=== PATIENT | female | born 1965 | race Caucasian/White ===

== ENCOUNTER 2017-01-13 21:46 | Emergency (ER) | payer SELFPAY ==
[~2017-01-13] VITALS: Ht 157.5 cm; Wt 72.0 kg
[~2017-01-13 21:46] MED LIST: HYDR-3533 PO; SYNT88TA PO
[2017-01-13 21:48] VITALS: BP 167/85; PULSE 93; RESP 20; TEMP 97.9; O2SAT 99
[2017-01-13] MEDS ORDERED: DICL50TA3 PO (23:09)
--- NOTE | 2017-01-13 23:09 | PD ---
HPI Chief Complaint: Injury Time Seen by Provider: 23:06 Travel History International Travel<30 days: No Contact w/Intl Traveler<30days: No Traveled to known affect area: No History of Present Illness HPI 51-year-old white female presents to the emergency department with complaints of right ankle pain. She states that she was standing in the kitchen and rolled her ankle. She states that she had heard and felt a pop. Since then she 's not been able to bear weight. She denies any numbness, tingling. No weakness. She did not go to the ground. She was able to catch herself. PFSH Past Medical History Heart Rhythm Problems: No Cardiac Catheterization: No Cardiovascular Problems: No High Cholesterol: No Chest Pain: Yes (HX STRESS TEST) Congestive Heart Failure: No Diabetes: No Diminished Hearing: No Hypertension: Yes Immunizations Current: Yes Myocardial Infarction: No Pancreatitis: Yes Tetanus Vaccination: < 5 Years ?: Not Past Surgical History Section: Yes (X2) Coronary Artery Bypass Graft: No Eye Surgery: Yes (CATARACTS) Hysterectomy: Yes (PARTIAL 1996) Tonsillectomy: Yes Other Surgery: Yes (BREAST AUGMENTATION 2005) Social History Alcohol Use: Yes (RARELY) Tobacco Use: Yes (1/2PPD) Substance Use: No Allergies-Medications (Allergen,Severity, Reaction): Coded Allergies: Penicillin (Verified Allergy, Severe, SWELLING,HIVES, 01/13/17) Tylenol/Codeine (Verified Allergy, Severe, SWELLING,HIVES, 01/13/17) Darvocet-N 100 (Verified Adverse Reaction, Severe, CHEST PAIN,ABDOMINAL PAIN, 01/13/17) Erythromycin (Verified Adverse Reaction, Intermediate, Nausea/Vomiting, 01/13/17) Reported Meds & Prescriptions Reported Meds & Active Scripts Active Diclofenac Sodium DR (Diclofenac Sodium) 50 Mg Tabdr 50 Mg PO TID Lortab 5 mg/325 mg (Hydrocodone/Acetaminophen 5 mg/325 mg) 1 Tab 1 Tab PO Q6H PRN Reported Synthroid 88 mcg (Levothyroxine Sodium) 88 Mcg Tab 88 Mcg PO DAILY Review of Systems Except as stated in HPI: all other systems reviewed are Neg Physical Exam Narrative GENERAL: Well-developed, well-nourished in no apparent distress. Nontoxic appearing. HEAD: Normocephalic, atraumatic. EYES: Pupils equal round and reactive. Extraocular motions intact. No scleral icterus. No injection or drainage. ENT: Nose clear. Throat without erythema, tonsillar hypertrophy or exudate. Uvula midline. Airway patent. NECK: Trachea midline. Supple, nontender, moves head freely. No central bony tenderness or spasm. CARDIOVASCULAR: Regular rate and rhythm without murmurs, gallops, or rubs. RESPIRATORY: Clear to auscultation. Breath sounds equal bilaterally. No wheezes , rales, or rhonchi. GASTROINTESTINAL: Abdomen soft, non-tender, nondistended. No hepato-splenomegaly , or palpable masses. No guarding. EXTREMITIES: No clubbing, cyanosis. Examination of the right lower extremity reveals pain over the lateral malleolus as well as the anterior talar fibular ligament region. No pain over the medial malleolus. No pain in the heel, Achilles, distal forefoot or toes. She has intact sensation with good distal pulses. No pain in the knee or hip. The left lower extremity as well as upper extremities are unremarkable for acute bony tenderness or deformity. Patient is neurovascularly intact. BACK: Nontender without deformity. No flank tenderness. NEUROLOGICAL: Awake, alert and oriented x 3 .Cranial nerves grossly intact. Motor and sensory grossly within normal limits. Normal speech. Data Data Last Documented VS Vital Signs Date Time Temp Pulse Resp B/P Pulse Ox O2 Delivery O2 Flow Rate FiO2 01/13/17 21:48 97.9 93 20 167/85 99 Room Air Orders Ankle, Complete ([id number]) (01/13/17 23:04) Ice/Cold Pack (01/13/17 23:04) Splint Or Brace Apply/Monitor (01/13/17 23:04) Crutches (01/13/17 23:04) Acetamin-Hydrocod 325-5 Mg ([place] 5-325 (01/13/17 23:15) Ibuprofen (Motrin) (01/13/17 23:15) MDM Medical Decision Making Medical Screen Exam Complete: Yes Emergency Medical Condition: Yes Medical Record Reviewed: Yes Interpretation(s) Right ankle: Positive soft tissue swelling but no acute fracture. Differential Diagnosis MDM: High Differential diagnoses: Fracture, sprain, strain, dislocation, contusion, neurovascular injury Narrative Course X-ray of the right ankle is negative for acute bony injury. Patient's given Lortab 5 and Motrin 600 mg by mouth. Ice pack applied. Devang wrap and crutches. This is right ankle sprain Diagnosis Primary Impression: Right ankle sprain Qualified Code: S93.421A - Sprain of deltoid ligament of right ankle, initial encounter Patient Instructions: General Instructions, Narcotic given in the ED Departure Forms: Tests/Procedures, Work Release Special Instructions: No work 3 days. Additional Instructions: Rest. Elevation. Ice packs for the next 3 days. Devang wrap and crutches. No weight-bearing and then progress to weight-bearing as tolerated. Medications as directed Follow-up with an orthopedist or your doctor in one week. Return to the ER if any problems Med/Other Pt SpecificInfo: Prescription(s) given Scripts Diclofenac Sodium DR 50 Mg Tabdr50 Mg PO TID #30 TAB Prov:Manuel Douglas MD 01/13/17 Disposition: 01 DISCHARGE HOME Condition: Stable Sergio Mathis Jan 13, 2017 23:09
[2017-01-13] MEDS ORDERED: IBUPROFEN 600 MG TAB PO ONE (23:15)
[2017-01-13] MEDS ORDERED: ACETAMINOPHEN/HYDROcodone 325 MG/5 MG TAB PO ONE (23:15)
--- NOTE | 2017-01-13 23:29 | RADRPT ---
EXAM DATE/TIME: 01/13/2017 23:17 [facility] COMPARISON: No previous studies available for comparison. INDICATIONS : Right ankle pain post fall today. MEDICAL HISTORY : None. SURGICAL HISTORY : None. ENCOUNTER: Initial ACUITY: 1 day PAIN SCORE: 10/10 LOCATION: Right lateral ankle. FINDINGS: Three view exam was performed of the right ankle. The bony structures are in normal alignment. No e vidence of fracture, dislocation, or soft tissue swelling. The ankle mortise is intact. No radiopaq ue foreign bodies are seen. Bony mineralization is normal. Small calcaneal spur at the plantar apone urosis CONCLUSION: Small calcaneal spur. No fracture. Shaun Bone MD on January 13, 2017 at 23:26 Board Certified Radiologist. This report was verified electronically.
[2017-03-11] MEDS ORDERED: ADVI200C PO (14:41)
[2017-03-11] MEDS ORDERED: LEVO75TA3 PO (15:00)
== END 2017-01-13 23:40 | disposition home or self-care (01) ==
LOC: NEPB 21:46
DX: S93.421A Sprain of deltoid ligament of right ankle, initial encounter (principal); F17.200 Nicotine dependence, unspecified, uncomplicated; Z87.19 Personal history of other diseases of the digestive system; X58.XXXA Exposure to other specified factors, initial encounter; Y92.000 Kitchen of unspecified non-institutional (private) residence as the place of occurrence of the external cause
CPT/HCPCS: 73610; 99283; E0113

== ENCOUNTER 2017-02-27 07:46 | Observation (INO) | payer SELFPAY ==
[2017-02-27] VITALS (9 sets, daily range): BP systolic 133–187; BP diastolic 79–104; PULSE 67–89; RESP 16–20; TEMP 96.2–98.1; O2SAT 95–100
[~2017-02-27 07:46] MED LIST changes: +DICL50TA3 PO
--- NOTE | 2017-02-27 08:03 | PD ---
HPI Chief Complaint: Numbness/Tingling Time Seen by Provider: 07:57 Travel History International Travel<30 days: No Contact w/Intl Traveler<30days: No Traveled to known affect area: No History of Present Illness HPI 51yo F with PMH of HTN not on any medications, TIA presents to the ED with c/o numbness in the right face, arm and leg since waking up this morning. States she went to bed normal last night but does not remember time she went to bed but woke up at 6am and felt more numb in the right side. Pt also has a chronic headache that is her usual headache. Denies any fever, neck pain, visual changes, chest pain, sob, n/v, abdominal pain, or focal weakness. [facility] states she was a bit shaky in her arm so they gave ativan 2mg IV. Pt denies any chronic alcohol use but does have some right arm tremors with movement. PFSH Past Medical History Heart Rhythm Problems: No Cardiac Catheterization: No Cardiovascular Problems: No High Cholesterol: No Chest Pain: Yes (HX STRESS TEST) Congestive Heart Failure: No Diabetes: No Diminished Hearing: No Hypertension: Yes Immunizations Current: Yes Myocardial Infarction: No Pancreatitis: Yes ?: Unknown Past Surgical History Section: Yes (X2) Coronary Artery Bypass Graft: No Eye Surgery: Yes (CATARACTS) Hysterectomy: Yes (PARTIAL 1996) Tonsillectomy: Yes Other Surgery: Yes (BREAST AUGMENTATION 2005) Social History Alcohol Use: Yes (RARELY) Tobacco Use: Yes (1/2PPD) Substance Use: No Allergies-Medications (Allergen,Severity, Reaction): Coded Allergies: Penicillin (Verified Allergy, Severe, SWELLING,HIVES, 01/13/17) Tylenol/Codeine (Verified Allergy, Severe, SWELLING,HIVES, 01/13/17) Darvocet-N 100 (Verified Adverse Reaction, Severe, CHEST PAIN,ABDOMINAL PAIN, 01/13/17) Erythromycin (Verified Adverse Reaction, Intermediate, Nausea/Vomiting, 01/13/17) Reported Meds & Prescriptions Reported Meds & Active Scripts Active Diclofenac Sodium DR (Diclofenac Sodium) 50 Mg Tabdr 50 Mg PO TID Review of Systems Except as stated in HPI: all other systems reviewed are Neg Physical Exam Narrative GENERAL: 51yo F not in distress. SKIN: Focused skin assessment warm/dry. HEAD: Atraumatic. Normocephalic. EYES: Pupils equal and round. No scleral icterus. No injection or drainage. ENT: No nasal bleeding or discharge. Mucous membranes pink and moist. NECK: Trachea midline. No JVD. CARDIOVASCULAR: Regular rate and rhythm. No murmur appreciated. RESPIRATORY: No accessory muscle use. Clear to auscultation. Breath sounds equal bilaterally. GASTROINTESTINAL: Abdomen soft, non-tender, nondistended. MUSCULOSKELETAL: No obvious deformities. No clubbing. No cyanosis. No edema. NEUROLOGICAL: Awake and alert. NIH stroke scale of 1. Pt has decreased sensation in right face V1-V3 distribution, right arm and right leg. PSYCHIATRIC: Appropriate mood and affect; insight and judgment normal. Data Data Last Documented VS Vital Signs Date Time Temp Pulse Resp B/P Pulse Ox O2 Delivery O2 Flow Rate FiO2 02/27/17 08:57 79 18 143/79 98 02/27/17 08:[address] Brain W/O Iv Contrast(Rout) (02/27/17 ) Complete Blood Count With Diff (02/27/17 07:57) Basic Metabolic Panel (Bmp) (02/27/17 07:57) Prothrombin Time / Inr (Pt) (02/27/17 07:57) Act Partial Throm Time (Ptt) (02/27/17 07:57) Hydralazine Inj (Apresoline Inj) (02/27/17 08:15) Aspirin (Aspirin) (02/27/17 10:00) Admit Order (Ed Use Only) (02/27/17 09:59) Consult Neurology (02/27/17 ) Labs Laboratory Tests Test 02/27/17 08:00 White Blood Count 6.1 TH/MM3 Red Blood Count 4.09 MIL/MM3 Hemoglobin 13.8 GM/DL Hematocrit 39.4 % Mean Corpuscular Volume 96.3 FL Mean Corpuscular Hemoglobin 33.7 PG Mean Corpuscular Hemoglobin 35.0 % Concent Red Cell Distribution Width 13.5 % Platelet Count 321 TH/MM3 Mean Platelet Volume 8.5 FL Neutrophils (%) (Auto) 52.2 % Lymphocytes (%) (Auto) 32.8 % Monocytes (%) (Auto) 10.2 % Eosinophils (%) (Auto) 3.4 % Basophils (%) (Auto) 1.4 % Neutrophils # (Auto) 3.2 TH/MM3 Lymphocytes # (Auto) 2.0 TH/MM3 Monocytes # (Auto) 0.6 TH/MM3 Eosinophils # (Auto) 0.2 TH/MM3 Basophils # (Auto) 0.1 TH/MM3 CBC Comment DIFF FINAL Differential Comment Prothrombin Time 10.5 SEC Prothromb Time International 1.0 RATIO Ratio Activated Partial 25.9 SEC Thromboplast Time Sodium Level 141 MEQ/L Potassium Level 3.9 MEQ/L Chloride Level 105 MEQ/L Carbon Dioxide Level 27.1 MEQ/L Anion Gap 9 MEQ/L Blood Urea Nitrogen 11 MG/DL Creatinine 0.85 MG/DL Estimat Glomerular Filtration 70 ML/MIN Rate Random Glucose 90 MG/DL Hemoglobin A1c 5.3 % Calcium Level 9.4 MG/DL Total Creatine Kinase 105 U/L Troponin I LESS THAN 0.02 NG/ML Free Thyroxine 0.69 NG/DL Free Triiodothyronine (T3) 2.77 PG/ML pg/dL Thyroid Stimulating Hormone 22.800 uIU/ML 3rd Gen [facility] Medical Decision Making Medical Screen Exam Complete: Yes Emergency Medical Condition: Yes Differential Diagnosis CVA vs. anxiety vs. electrolyte abnormality vs. hypertensive emergency Narrative Course 51yo F with HTN and TIA here with new onset right sided numbness when she woke up this morning. Pt's blood pressure is elevated at 172/104. Will give hydralazine 10mg IV. Will obtain stat CT brain and labs. CT brain negative. Labs reviewed, no leukocytosis. BMP unremarkable. Aspirin given. Neurology consult placed. Pt to be admitted for TIA work up. Diagnosis Primary Impression: TIA (transient ischemic attack) Qualified Code: G45.9 - Transient cerebral ischemia, unspecified type Admitting Information Admitting Physician Requests: Zenobia Robins DO Feb 27, 2017 08:03
[2017-02-27 08:13] LABS: AUTOMATED NEUTROPHIL # 3.2 TH/MM3 (1.8-7.7); BASOPHIL # 0.1 TH/MM3 (0-0.2); BASOPHIL % 1.4 % (0.0-2.0); EOSINOPHIL # 0.2 TH/MM3 (0-0.4); EOSINOPHIL % 3.4 % (0.0-4.0); HEMATOCRIT 39.4 % (35.0-46.0); HEMO FLAGS DIFF FINAL; LYMPH % 32.8 % (9.0-44.0); MEAN CELL VOLUME 96.3 FL (80.0-100.0); MEAN CORPUSCULAR HEMOGLOBIN 33.7 PG (27.0-34.0); MONO % 10.2 % (0.0-8.0); NEUT % 52.2 % (16.0-70.0); PLATELET COUNT 321 TH/MM3 (150-450); RED BLOOD COUNT 4.09 MIL/MM3 (4.00-5.30); RED CELL DISTRIBUTION WIDTH 13.5 % (11.6-17.2); WHITE BLOOD COUNT 6.1 TH/MM3 (4.0-11.0)
[2017-02-27] MEDS ORDERED: hydrALAZINE HCL 20 MG/ML VIAL IV PUSH ONE (08:15)
[2017-02-27 08:18] LABS: APTT (PATIENT) 25.9 SEC (24.3-30.1); PROTHROMBIN TIME - PATIENT 10.5 SEC (9.8-11.6)
[2017-02-27 08:42] LABS: BICARBONATE 27.1 MEQ/L (21.0-32.0); POTASSIUM 3.9 MEQ/L (3.5-5.1)
--- NOTE | 2017-02-27 09:11 | RADRPT ---
EXAM DATE/TIME: 02/27/2017 08:46 [facility] COMPARISON: No previous studies available for comparison. INDICATIONS : Uncontrolled shaking, right-sided numbness since waking up today. RADIATION DOSE: 37.93 CTDIvol (mGy) MEDICAL HISTORY : Hypertension. SURGICAL HISTORY : Tonsillectomy. ENCOUNTER: Initial ACUITY: 1 day PAIN SCALE: 5/10 LOCATION: Bilateral occipital TECHNIQUE: Multiple contiguous axial images were obtained of the head. Using automated exposure control and adj ustment of the mA and/or kV according to patient size, radiation dose was kept as low as reasonably a chievable to obtain optimal diagnostic quality images. FINDINGS: CEREBRUM: The ventricles are normal for age. No evidence of midline shift, mass lesion, hemorrhage or acute in farction. No extra-axial fluid collections are seen. POSTERIOR FOSSA: The cerebellum and brainstem are intact. The 4th ventricle is midline. The cerebellopontine angle i s unremarkable. EXTRACRANIAL: The visualized portion of the orbits is intact. SKULL: The calvaria is intact. No evidence of skull fracture. CONCLUSION: No acute disease. Tristin Dunn MD on February 27, 2017 at 9:09 Board Certified Radiologist. This report was verified electronically.
[2017-02-27] MEDS ORDERED: ASPIRIN 325 MG TAB PO ONE (10:00)
--- NOTE | 2017-02-27 10:36 | HHI.HP ---
HPI Service Family Medicine Primary Care Physician No Primary Care Physician Admission Diagnosis CVA Diagnoses: International Travel<30 Days: No Contact w/Intl Traveler<30days: No Known Affected Area: No History of Present Illness 51 yo F presenting with right sided paresthesias of the face/arm and generalized malaise. She states she was feeling well until yesterday when she began to feel "shaky" and tremulous with diaphoresis. She went to sleep at approx. 6pm yesterday and continued to be shaky/tremulous throughout the night. She woke up this morning with uncontrollable tremulousness and diaphoresis. This was associated with right sided numbness of the right side of her face, right hand, and right leg down to her foot. This was first noticed at 3am upon waking up. She was unable to stop shaking and her recommend she present to the hospital. At that time, she describes subjective right sided upper and lower extremity weakness but was able to walk without issue. She also began having chest pain located under her right breast that started this morning while in the ED. This chest pain is described as a sharp pain that is stabbing in nature, located only on the right side and is associated with some shortness of breath. She endorses a significant headache described as pressure in the posterior of head (chronic headaches, not endorsed as the worst headache shes ever had), fuzzy vision (chronic without changes), tremors/shaking, diaphoresis and malaise , chest pain located on the right side with shortness of breath. She denies nausea/vomiting, abdominal pain, joint pain, dysuria, palpitations. [facility] was called to her house and states she was a bit shaky in her arm so they gave ativan 2mg IV. Pt denies any chronic alcohol use but does have some right arm tremors with movement. Several years ago she was hospitalized for chest pain and shortness of breath and was told she had a "clot pass through her heart" and was hayden to be alive. However she was never treated for pulmonary embolus or on blood thinners. She is unable to further describe this event. Review of Systems Constitutional: COMPLAINS OF: Diaphoretic episodes, Fatigue, Fever, Chills, DENIES: Weight gain, Weight loss, Dizziness Eyes: COMPLAINS OF: Blurred vision, DENIES: Eye pain, Vision loss, Double Vision Ears, nose, mouth, throat: DENIES: Nasal discharge Respiratory: COMPLAINS OF: Cough, Shortness of breath, DENIES: Wheezing, Sputum production Cardiovascular: COMPLAINS OF: Chest pain, DENIES: Palpitations, Syncope, Dyspnea on Exertion, Lower Extremity Edema Gastrointestinal: COMPLAINS OF: Difficulty Swallowing, DENIES: Abdominal pain , Constipation, Diarrhea, Nausea, Vomiting Musculoskeletal: COMPLAINS OF: Neck pain, DENIES: Joint pain, Muscle aches, Back pain Psychiatric: COMPLAINS OF: Anxiety, DENIES: Confusion, Agitation Past Family Social History Past Medical History Hypothyroid (not on medication) Hypertension (not on medication) Pancreatitis (2006) Cataracts s/p removal with lens placement Past Surgical History Cataract removal Hysterectomy Tonsillectomy Ganglion cyst removal Breast Augmentation Caesarian Section x2 Right knee surgery Reported Medications Reported Meds & Active Scripts Active Diclofenac Sodium DR (Diclofenac Sodium) 50 Mg Tabdr 50 Mg PO TID Lortab 5 mg/325 mg (Hydrocodone/Acetaminophen 5 mg/325 mg) 1 Tab 1 Tab PO Q6H PRN Reported Synthroid 88 mcg (Levothyroxine Sodium) 88 Mcg Tab 88 Mcg PO DAILY Allergies: Coded Allergies: Penicillin (Verified Allergy, Severe, SWELLING,HIVES, 01/13/17) Tylenol/Codeine (Verified Allergy, Severe, SWELLING,HIVES, 01/13/17) Darvocet-N 100 (Verified Adverse Reaction, Severe, CHEST PAIN,ABDOMINAL PAIN, 01/13/17) Erythromycin (Verified Adverse Reaction, Intermediate, Nausea/Vomiting, 01/13/17) Active Ordered Medications Active Medications Aspirin (Aspirin) 325 mg ONCE ONCE PO Last administered on 02/27/17 09:59; Admin Dose 325 MG; Start 02/27/17 at 10:00; Stop 02/27/17 at 10:01; Status DC Hydralazine HCl (Apresoline Inj) 10 mg ONCE ONCE IV PUSH Last administered on 08:11; Admin Dose 10 MG; Start 02/27/17 at 08:15; Stop 02/27/17 at 08: 16; Status DC Family History Father: from mesothelioma age 65 Mother: Age 72 - breast cancer and small cell carcinoma and currently in facility for brain clots Sister: abnormal cervical cells Daughter: cervical cancer Social History 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 HEAD: Atraumatic. Normocephalic. EYES: Pupils equal and round. No scleral icterus. No injection or drainage. ENT: total upper plate in mouth, no pharyngeal erythema NECK: Trachea midline. No JVD. CARDIOVASCULAR: Regular rate and rhythm. No murmur appreciated. RESPIRATORY: No accessory muscle use. Clear to auscultation. Breath sounds equal bilaterally. GASTROINTESTINAL: Abdomen soft, non-tender, nondistended. (+) BS MUSCULOSKELETAL: No obvious deformities. No clubbing. No cyanosis. No edema. NEUROLOGICAL: Awake and alert. Pt has subjectively decreased sensation in right face V1-V3 distribution, right arm and right leg. Negative pronator drift , normal cerebellar function testing with heel-christian, hand movement. 5/5 strength with upper/lower ext. strength testing. Facies is symmetric without obvious droop/lag. PSYCHIATRIC: Appropriate mood and affect; insight and judgment normal. Somewhat anxious and emotional. Laboratory Laboratory Tests Test 02/27/17 08:00 White Blood Count 6.1 Red Blood Count 4.09 Hemoglobin 13.8 Hematocrit 39.4 Mean Corpuscular Volume 96.3 Mean Corpuscular Hemoglobin 33.7 Mean Corpuscular Hemoglobin 35.0 Concent Red Cell Distribution Width 13.5 Platelet Count 321 Mean Platelet Volume 8.5 Neutrophils (%) (Auto) 52.2 Lymphocytes (%) (Auto) 32.8 Monocytes (%) (Auto) 10.2 Eosinophils (%) (Auto) 3.4 Basophils (%) (Auto) 1.4 Neutrophils # (Auto) 3.2 Lymphocytes # (Auto) 2.0 Monocytes # (Auto) 0.6 Eosinophils # (Auto) 0.2 Basophils # (Auto) 0.1 CBC Comment DIFF FINAL Differential Comment Prothrombin Time 10.5 Prothromb Time International 1.0 Ratio Activated Partial 25.9 Thromboplast Time Sodium Level 141 Potassium Level 3.9 Chloride Level 105 Carbon Dioxide Level 27.1 Anion Gap 9 Blood Urea Nitrogen 11 Creatinine 0.85 Estimat Glomerular Filtration 70 Rate Random Glucose 90 Calcium Level 9.4 Result Diagram: 02/27/17 0800 02/27/17 0800 Imaging Last [address] 02/27/17 0000 Signed Impressions: Service Date/Time: February 08:46 - CONCLUSION: No acute disease. Tristin Dunn MD Assessment and Plan Assessment and Plan 51 yo F presenting with right sided facial/upper extremity paresthesias consistent with TIA vs. CVA Problem List: (1) Abnormal neurological findings Status: Acute Plan: Neurologic findings including right sided facial paresthesia, right upper extremity and right lower extremity paresthesias with subjective weakness -Symptoms consistent with TIA versus CVA - Presenting outside of the window for thrombolytic therapy and symptoms are gradually improving Neurology was consulted in the emergency department, recommendations appreciated CVA evaluation as below: CT brain with no acute findings MRI brain ordered and pending Carotid ultrasound ordered and pending 2-D echocardiogram ordered and pending Medication management as below: Aspirin 325 mg by mouth daily Pravastatin 40 mg by mouth daily - Obtain fasting lipid panel Supportive management: Supplemental oxygen as needed Monitor on telemetry to evaluate for arrhythmia such as atrial fibrillation Physical therapy/occupational therapy consult placed Head of bed <30 degrees 12 hours Neurochecks every 4 hours Permissive hypertension up to 220 systolic, as needed antihypertensives with hydralazine (2) Chest pain Status: Acute Plan: Atypical chest pain, right sided and worse with inspiration ACS rule out with: Troponin 1 EKG 1 (3) Headache Status: Acute Plan: Described as worst headache of her life, further evaluation with MRI pending - Anxiety could play a role in this, headaches are chronic in nature As needed anxiety medication with Ativan 1 mg every 6 hours (4) Hypothyroid Status: Acute Plan: Currently not taking thyroid medication - Obtain TSH and T3/T4 (5) Hypertension Status: Chronic Plan: Permissive hypertension at this time up to 220 systolic - As needed hydralazine Blood pressure remains elevated we will begin antihypertensive treatment (6) FEN / Prophylaxis Status: Acute Plan: Fluids: Appears well-hydrated, bedside swallow eval and then oral hydration Electrolytes: Monitor and replace as needed Nutrition: Bedside swallow eval and then allow diet ad natalya. Prophylaxis: Lovenox 40 mg SQ daily Physician Certification 2 Midnight Certification Type: Admission for Inpatient Services Order for Inpatient Services The services are ordered in accordance with Medicare regulations or non- Medicare payer requirements, as applicable. In the case of services not specified as inpatient-only, they are appropriately provided as inpatient services in accordance with the 2-midnight benchmark. Estimated LOS (days): 2 2 days is the estimated time the patient will need to remain in the hospital, assuming treatment plan goals are met and no additional complications. Post-Hospital Plan: Not yet determined Problem Qualifiers (1) Chest pain: Qualified Code: R07.9 - Chest pain, unspecified type (2) Hypertension: Qualified Code: I10 - Essential hypertension Devan Barker MD Feb 27, 2017 10:35
[2017-02-27] MEDS ORDERED: SODIUM CHLORIDE 0.9% FLUSH 10 ML FLUSH IV FLUSH PRN (11:30)
[2017-02-27] MEDS ORDERED: GLUCAGON 1 MG/ML VIAL IM/SQ PRN (11:30)
[2017-02-27] MEDS ORDERED: ENALAPRILAT 1.25 MG/ML VIAL IV PRN (11:30)
[2017-02-27] MEDS: SODIUM CHLORIDE 0.9% FLUSH 10 ML FLUSH IV FLUSH SCH ×2 (11:30→21:00)
[2017-02-27] MEDS ORDERED: LORazepam 1 MG TAB PO PRN (11:30)
[2017-02-27] MEDS ORDERED: DEXTROSE 50% IN WATER 50 ML VIAL(D50) IV PUSH PRN (11:30)
--- NOTE | 2017-02-27 11:45 | HHI.HP ---
HPI Service Family Medicine Primary Care Physician No Primary Care Physician Admission Diagnosis CVA Diagnoses: (1) Abnormal neurological findings (2) Chest pain (3) Headache (4) Hypothyroid (5) Hypertension (6) FEN / Prophylaxis International Travel<30 Days: No Contact w/Intl Traveler<30days: No Known Affected Area: No History of Present Illness 51 yo F presenting with right sided paresthesias of the face/arm and generalized malaise. She states she was feeling well until yesterday when she began to feel "shaky" and tremulous with diaphoresis. She went to sleep at approx. 6pm yesterday and continued to be shaky/tremulous throughout the night. She woke up this morning with uncontrollable tremulousness and diaphoresis. This was associated with right sided numbness of the right side of her face, right hand, and right leg down to her foot. This was first noticed at 3am upon waking up. She was unable to stop shaking and her recommend she present to the hospital. At that time, she describes subjective right sided upper and lower extremity weakness but was able to walk without issue. She also began having chest pain located under her right breast that started this morning while in the ED. This chest pain is described as a sharp pain that is stabbing in nature, located only on the right side and is associated with some shortness of breath. She endorses a significant headache described as pressure in the posterior of head (chronic headaches, not endorsed as the worst headache shes ever had), fuzzy vision (chronic without changes), tremors/shaking, diaphoresis and malaise , chest pain located on the right side with shortness of breath. She denies nausea/vomiting, abdominal pain, joint pain, dysuria, palpitations. [facility] was called to her house and states she was a bit shaky in her arm so they gave ativan 2mg IV. Pt denies any chronic alcohol use but does have some right arm tremors with movement. Several years ago she was hospitalized for chest pain and shortness of breath and was told she had a "clot pass through her heart" and was hayden to be alive. However she was never treated for pulmonary embolus or on blood thinners. She is unable to further describe this event. Past Family Social History Past Medical History Hypothyroid (not on medication) Hypertension (not on medication) Pancreatitis (2006) Cataracts s/p removal with lens placement Past Surgical History Cataract removal Hysterectomy Tonsillectomy Ganglion cyst removal Breast Augmentation Caesarian Section x2 Right knee surgery Allergies: Coded Allergies: Penicillin (Verified Allergy, Severe, SWELLING,HIVES, 01/13/17) Tylenol/Codeine (Verified Allergy, Severe, SWELLING,HIVES, 01/13/17) Darvocet-N 100 (Verified Adverse Reaction, Severe, CHEST PAIN,ABDOMINAL PAIN, 01/13/17) Erythromycin (Verified Adverse Reaction, Intermediate, Nausea/Vomiting, 01/13/17) Family History Father: from mesothelioma age 65 Mother: Age 72 - breast cancer and small cell carcinoma and currently in facility for brain clots Sister: abnormal cervical cells Daughter: cervical cancer Social History 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 SKIN: No rashes, ecchymoses or lesions. Cool and dry. HEAD: Atraumatic. Normocephalic. No temporal or scalp tenderness. EYES: Pupils equal round and reactive. Extraocular motions intact. No scleral icterus. No injection or drainage. ENT: Nose without bleeding, purulent drainage or septal hematoma. Throat without erythema, tonsillar hypertrophy or exudate. Uvula midline. Airway patent. NECK: Trachea midline. No JVD or lymphadenopathy. Supple, nontender, no meningeal signs. CARDIOVASCULAR: Regular rate and rhythm without murmurs, gallops, or rubs. RESPIRATORY: Clear to auscultation. Breath sounds equal bilaterally. No wheezes , rales, or rhonchi. GASTROINTESTINAL: Abdomen soft, non-tender, nondistended. No hepato-splenomegaly , or palpable masses. No guarding. MUSCULOSKELETAL: Extremities without clubbing, cyanosis, or edema. No joint tenderness, effusion, or edema noted. No calf tenderness. Negative Homans sign bilaterally. NEUROLOGICAL: Awake and alert. Cranial nerves II through XII intact. Motor and sensory grossly within normal limits. Five out of 5 muscle strength in all muscle groups. Normal speech. Laboratory Laboratory Tests Test 02/27/17 08:00 White Blood Count 6.1 Red Blood Count 4.09 Hemoglobin 13.8 Hematocrit 39.4 Mean Corpuscular Volume 96.3 Mean Corpuscular Hemoglobin 33.7 Mean Corpuscular Hemoglobin 35.0 Concent Red Cell Distribution Width 13.5 Platelet Count 321 Mean Platelet Volume 8.5 Neutrophils (%) (Auto) 52.2 Lymphocytes (%) (Auto) 32.8 Monocytes (%) (Auto) 10.2 Eosinophils (%) (Auto) 3.4 Basophils (%) (Auto) 1.4 Neutrophils # (Auto) 3.2 Lymphocytes # (Auto) 2.0 Monocytes # (Auto) 0.6 Eosinophils # (Auto) 0.2 Basophils # (Auto) 0.1 CBC Comment DIFF FINAL Differential Comment Prothrombin Time 10.5 Prothromb Time International 1.0 Ratio Activated Partial 25.9 Thromboplast Time Sodium Level 141 Potassium Level 3.9 Chloride Level 105 Carbon Dioxide Level 27.1 Anion Gap 9 Blood Urea Nitrogen 11 Creatinine 0.85 Estimat Glomerular Filtration 70 Rate Random Glucose 90 Calcium Level 9.4 Result Diagram: 02/27/17 0800 02/27/17 0800 Imaging Last [address] 02/27/17 0000 Signed Impressions: Service Date/Time: February 08:46 - CONCLUSION: No acute disease. Tristin Dunn MD Assessment and Plan Assessment and Plan 51 yo F presenting with right sided facial/upper extremity paresthesias consistent with TIA vs. CVA Problem List: (1) Abnormal neurological findings Status: Acute Plan: Neurologic findings including right sided facial paresthesia, right upper extremity and right lower extremity paresthesias with subjective weakness -Symptoms consistent with TIA versus CVA - Presenting outside of the window for thrombolytic therapy and symptoms are gradually improving Neurology was consulted in the emergency department, recommendations appreciated CVA evaluation as below: CT brain with no acute findings MRI brain ordered and pending Carotid ultrasound ordered and pending 2-D echocardiogram ordered and pending Medication management as below: Aspirin 325 mg by mouth daily Pravastatin 40 mg by mouth daily - Obtain fasting lipid panel Supportive management: Supplemental oxygen as needed Monitor on telemetry to evaluate for arrhythmia such as atrial fibrillation Physical therapy/occupational therapy consult placed Head of bed <30 degrees 12 hours Neurochecks every 4 hours Permissive hypertension up to 220 systolic, as needed antihypertensives with hydralazine (2) Chest pain Status: Acute Plan: Atypical chest pain, right sided and worse with inspiration ACS rule out with: Troponin 1 EKG 1 (3) Headache Status: Acute Plan: Described as worst headache of her life, further evaluation with MRI pending - Anxiety could play a role in this, headaches are chronic in nature As needed anxiety medication with Ativan 1 mg every 6 hours (4) Hypothyroid Status: Acute Plan: Currently not taking thyroid medication - Obtain TSH and T3/T4 (5) Hypertension Status: Chronic Plan: Permissive hypertension at this time up to 220 systolic - As needed hydralazine Blood pressure remains elevated we will begin antihypertensive treatment (6) FEN / Prophylaxis Status: Acute Plan: Fluids: Appears well-hydrated, bedside swallow eval and then oral hydration Electrolytes: Monitor and replace as needed Nutrition: Bedside swallow eval and then allow diet ad natalya. Prophylaxis: Lovenox 40 mg SQ daily Problem Qualifiers (1) Chest pain: Qualified Code: R07.9 - Chest pain, unspecified type (2) Hypertension: Qualified Code: I10 - Essential hypertension Richard Dinh MD R1 Feb 27, 2017 11:45
[2017-02-27] MEDS: ASPIRIN 325 MG TAB PO SCH (13:22)
[2017-02-27] MEDS: ENOXAPARIN SODIUM 40 MG/0.4 ML SYRINGE SQ SCH (13:23)
[2017-02-27 13:27] LABS: CREATINE KINASE 105 U/L (26-192); FREE T3 2.77 PG/ML (2.18-3.98); FREE T4 0.69 NG/DL (0.76-1.46)
[2017-02-27] MEDS: INSULIN ASPART SUPPLEMENTAL SCALE SQ SCH ×2 (16:00→21:00)
--- NOTE | 2017-02-27 16:50 | EC ---
Study Study Date:02/27/2017 STUDY CONCLUSIONS SUMMARY - Left ventricle: The cavity size was normal. Wall thickness was normal. Systolic function was normal. The estimated ejection fraction was in the range of 55% to 60%. Wall motion was normal; there were no regional wall motion abnormalities. - Aortic valve: Valve area: 1.56cm^2(VTI). Valve area: 1.59cm^2 (Vmax). - Mitral valve: Mild regurgitation. - Tricuspid valve: Mild regurgitation. If LV function is below 40, please consider prescribing an ACEI or ARB or document rationale for non-use. PROCEDURE DATA STUDY STATUS: Elective. Procedure: Transthoracic echocardiography. Image quality was good. Scanning was performed from the parasternal, apical, and subcostal acoustic windows. Study completion: The patient tolerated the procedure well. Transthoracic echocardiography. M-mode, complete 2D, complete spectral Doppler, and color Doppler. Height: Height: 62in. Weight: Weight: 168.6lb. Body mass index: BMI: 30.9kg/m^2. Body surface area: BSA: 1.78m^2. Patient status: Inpatient. CARDIAC ANATOMY LEFT VENTRICLE: The cavity size was normal. Wall thickness was normal. Systolic function was normal. The estimated ejection fraction was in the range of 55% to 60%. Wall motion was normal; there were no regional wall motion abnormalities. AORTIC VALVE: Trileaflet; normal thickness leaflets. Doppler: Transvalvular velocity was within the normal range. There was no stenosis. No regurgitation. Valve area: 1.56cm^2(VTI). Indexed valve area: 0.88cm^2/m^2 (VTI). Valve area: 1.59cm^2 (Vmax). Indexed valve area: 0.89cm^2/m^2 (Vmax). Mean gradient: 3mm Hg (S). AORTA: Aortic root: The aortic root was normal in size. MITRAL VALVE: Structurally normal valve. Doppler: Transvalvular velocity was within the normal range. There was no evidence for stenosis. Mild regurgitation. LEFT ATRIUM: The atrium was normal in size. RIGHT VENTRICLE: The cavity size was normal. Wall thickness was normal. PULMONIC VALVE: Doppler: Transvalvular velocity was within the normal range. There was no evidence for stenosis. No regurgitation. TRICUSPID VALVE: Structurally normal valve. Doppler: Transvalvular velocity was within the normal range. Mild regurgitation. PULMONARY ARTERY: The main pulmonary artery was normal-sized. Systolic pressure was within the normal range. RIGHT ATRIUM: The atrium was normal in size. PERICARDIUM: There was no pericardial effusion. SYSTEMIC VEINS: Inferior vena cava: The vessel was normal in size. Patient weight: 168.6lb _Ejection fraction:_ 65-75% _Fractional shortening:_ 32% up to 5Kg 5-11.5Kg 11.6-22.9Kg 23-45Kg 45-57Kg Aortic Root 7-13 <17 13-22 17-27 17-27 LA diam 6-13 <23 24-38 33-47 37-40 RVID 10-17 7-15 7-15 7-18 8-17 LVIDd 12-22 <32 24-38 33-47 37-40 LVPW 2-4 3-6 5-7 6-8 7-8 IVS 2-4 3-6 5-7 6-8 7-8 BASIC MEASUREMENTS ADULT NORMAL Left ventricle LV internal dimension, ED, chordal 48.7 mm 43-52 level, PLAX LV internal dimension, ES, chordal 35.7 mm 23-38 level, PLAX Fractional shortening, chordal level, *27 % >29 PLAX LV posterior wall thickness, ED 7.46 mm IVS/LVPW ratio, ED 1.01 <1.3 Ventricular septum Septal thickness, ED 7.54 mm Aortic valve Leaflet separation 18 mm 15-26 Aorta Root diameter, ED 28 mm Left atrium Anterior-posterior dimension 25 mm Anterior-posterior dimension index 1.4 cm/m^2 <2.2 BASIC MEASUREMENTS ADULT NORMAL Aortic valve Leaflet separation 18 mm 15-26 DOPPLER MEASUREMENTS ADULT NORMAL Main pulmonary artery Pressure, S 29 mm Hg =30 Aortic valve Peak velocity, S 113 cm/s Mean velocity, S 86.4 cm/s VTI, S 22.7 cm Mean gradient, S 3 mm Hg Valve area, VTI 1.56 cm^2 Valve area index, VTI 0.88 cm^2/m^2 Valve area, Vmax 1.59 cm^2 Valve area index, Vmax 0.89 cm^2/m^2 Mitral valve Peak E-wave velocity 56.8 cm/s Peak A-wave velocity 80.9 cm/s Deceleration time *275 ms 150-230 Peak E/A ratio 0.7 Tricuspid valve Regurgitant peak velocity 223 cm/s Peak RV-RA gradient, S 20 mm Hg Maximal regurgitant velocity 223 cm/s Systemic veins Estimated CVP 10 mm Hg Right ventricle RV pressure, S *30 mm Hg <30 Pulmonic valve Peak velocity, S 43.6 cm/s LEGEND: Mean values are shown as u=mean value. Asterisk (*) pelayo values outside specified normal range. Prepared and signed by Van Curiel [id number]
[2017-02-27 17:00] LABS: HEMOGLOBIN A1a 1.1 %; HEMOGLOBIN A1b 1.6 %; HEMOGLOBIN Ao 86.1 %; HEMOGLOBIN LA1C 1.8 %; HEMOGLOBIN P3 3.5 %
[2017-02-27] MEDS ORDERED: ACETAMINOPHEN 500 MG CPLT PO PRN (20:00)
--- NOTE | 2017-02-27 20:15 | RADRPT ---
EXAM DATE/TIME: 02/27/2017 18:03 [facility] COMPARISON: No previous studies available for comparison. INDICATIONS : Cerebrovascular accident. MEDICAL HISTORY : Hypertension. Dyspnea. Pancreatitis. SURGICAL HISTORY : Tonsillectomy. section. Hysterectomy. Breast augmentation. ENCOUNTER: Initial ACUITY: 2 days PAIN SCORE: 0/10 LOCATION: Bilateral neck PEAK SYSTOLIC VELOCITIES (cm/sec): ICA/CCA RATIO: Right: 0.9 Left: 0.9 ICA: Right: 80 Left: 80 CCA: Right: 87 Left: 88 ECA: Right: 93 Left: 52 VERTEBRAL: Right: 38 antegrade Left: 68 antegrade Elevated flow velocities and ICA/CCA ratios have been found to correlate with increased degrees of vessel stenosis, calculated as percentage of diameter relative to a normal segment of distal ICA/CCA FINDINGS: RIGHT CAROTID: No significant stenosis is visualized. The waveforms are within normal limits. LEFT CAROTID: No significant stenosis is visualized. The waveforms are within normal limits. VERTEBRAL ARTERIES: Antegrade flow is seen in both vertebral arteries. MISCELLANEOUS: None. CONCLUSION: Normal examination. KJoana De Souza MD on February 27, 2017 at 20:12 Board Certified Radiologist. This report was verified electronically.
[2017-02-27] MEDS ORDERED: PRAVASTATIN SOD 40 MG TAB PO SCH (21:00)
--- NOTE | 2017-02-27 23:23 | MB ---
cc: HERNANDO CORTEZ MD DATE OF CONSULTATION 02/27/17 REASON FOR CONSULTATION Possible stroke/TIA. HISTORY OF PRESENT ILLNESS This is a 51-year-old female who presented to the hospital with right-sided numbness of the face, arm with generalized weakness. The patient described an episode where she felt lightheaded, dizzy associated with by a tremor of both hands and perspiration, profuse sweating and cold extremities and she felt diaphoretic. She denies any headaches during this episode, no slurred speech, difficulty swallowing, double vision, blurred vision, nausea, vomiting, weakness of an extremity or any convulsive activity. She described this episode as, "when you blood sugar goes low you get the same feeling." She thinks she had some right-sided numbness of her face and arm and leg and she was not able to stop her hands from shaking. She also had some chest pain described as sharp and stabbing on the right side of the chest around the breast area. The patient also complained of headache described as pressure in the back of her head. This has been chronic with no visual symptoms, nausea or vomiting. Her noticed her during the episode and he told her that he would call EMS and at house they noted that she was, "a bit shaky in her arms so she received 2 milligrams of Ativan IV. The patient denies any alcohol intake. REVIEW OF SYSTEMS A 12-point review of systems is negative except for what is stated in the HPI. PAST MEDICAL HISTORY Hypothyroid, she is currently on no medication. Hypertension currently on no medication. Pancreatitis, cataracts with lens placement. PAST SURGICAL HISTORY Cataract surgery, hysterectomy, tonsillectomy, breast augmentation, section twice, right knee surgery. MEDICATIONS 1. Diclofenac. 2. Lortab. 3. Synthroid 88, but she is not currently taking it. ALLERGIES PENICILLIN, TYLENOL, CODEINE, DARVOCET AND ERYTHROMYCIN. FAMILY HISTORY Father from mesothelioma at the age of 65, mother aged 72, breast cancer and small cell carcinoma. Sister abnormal cervical cells, daughter with cervical cancer. SOCIAL HISTORY Lives with her spouse, very rare consumption of alcohol, 1/2 packet per day of cigarettes. Denies illicit drug abuse. EXAMINATION GENERAL: Awake, alert, good historian, anxious, not in acute distress SKIN: Clammy, she looks flushed HEENT: Atraumatic, normocephalic. Intact vision, intact hearing NECK: ? Thyromegaly. No carotid bruits. No signs of meningeal irritation. CARDIOVASCULAR: Regular rate and rhythm, sinus tachycardia. RESPIRATORY: Clear to auscultation. No wheezes. GASTROINTESTINAL: Soft abdomen. No tenderness. MUSCULOSKELETAL: No deformity, clubbing, cyanosis. Moves extremities equally. NEUROLOGIC: Awake, alert, oriented to time, person and place and intact memory. No dysarthria or dysphasia. Intact speech content, normal articulation. Cranial nerves II-XII are grossly intact. Motor system examination 5/5 bilateral upper and lower extremities. Normal tone. Bilateral hand tremor, fine/action tremor. Sensation is intact bilateral and symmetrical to pain and temperature in upper and lower extremity. [id number], [id number] is intact bilateral and symmetrical. Reflexes 2+ bilateral and symmetrical upper and lower extremities. Plantar reflexes are b/l downgoing. PSYCHIATRIC: Appropriate mood and affect. Normal judgment and actions and emotional during the encounter. LABORATORY DATA - White BC 6.1, hemoglobin 13.8, MCV 96.3, platelet count 321, INR 1, sodium 141 , potassium 3.9, anion gap 9, BUN 11, creatinine 0.5, calcium 9.4. DIAGNOSTIC IMAGING - Head CT scan with no acute intracranial abnormality reported. - Carotid ultrasound revealed an unremarkable examination. DIAGNOSTIC IMPRESSION 1. Bilateral hand tremor. - Bilateral fine action tremor with an episode of diaphoresis, hand tremor without evidence or a witnessed convulsion or loss of consciousness. This is likely a tremor that is related to thyroid disorder or an exaggerated physiological tremor. I think the first etiology of thyroid disorder tremor is more likely the cause of her symptoms. 3. Hypertension. 4. Hypothyroid. PLAN 1. The patient's examination is nonfocal and unremarkable and neuroimaging head CT scan did not reveal any acute intracranial abnormality. 2. Follow up on thyroid function tests by the the attending team. 3. Possible TIA. This is an unlikely etiology. However, the patient has risk factors of a TIA and she had some transient sensory symptoms on the right side of her body hence an MRI of the brain is recommended. 4. Neuro checks q. 4 hourly. 5. DVT prophylaxis SCDs. 6. GI prophylaxis. 7. Aspirin 81 milligrams. Thank you for the opportunity to participate in the care of your patient. MD LUIS Anders /10:09 PM /10:42 PM JASSI
[2017-02-28] VITALS: BP 139/77; PULSE 75; RESP 18; TEMP 96.2; O2SAT 97
[2017-02-28 04:32] VITALS: BP 119/70; PULSE 65; RESP 20; TEMP 96.1; O2SAT 97
[2017-02-28] MEDS: INSULIN ASPART SUPPLEMENTAL SCALE SQ SCH ×2 (05:43→11:00)
[2017-02-28] MEDS ORDERED: LEVOTHYROXINE SODIUM 75 MCG TAB PO SCH (06:00)
[2017-02-28 06:01] LABS: AUTOMATED NEUTROPHIL # 2.9 TH/MM3 (1.8-7.7); BASOPHIL % 0.7 % (0.0-2.0); EOSINOPHIL # 0.3 TH/MM3 (0-0.4); EOSINOPHIL % 4.2 % (0.0-4.0); HEMO FLAGS DIFF FINAL; LYMPH % 38.1 % (9.0-44.0); LYMPHOCYTE # 2.5 TH/MM3 (1.0-4.8); MEAN CELL VOLUME 96.6 FL (80.0-100.0); MEAN CORPUSCULAR HEMOGLOBIN 33.5 PG (27.0-34.0); MEAN CORPUSCULAR HGB CONC 34.6 % (32.0-36.0); MONO % 12.6 % (0.0-8.0); NEUT % 44.4 % (16.0-70.0); PLATELET COUNT 313 TH/MM3 (150-450); RED BLOOD COUNT 4.14 MIL/MM3 (4.00-5.30); RED CELL DISTRIBUTION WIDTH 13.8 % (11.6-17.2); WHITE BLOOD COUNT 6.5 TH/MM3 (4.0-11.0)
[2017-02-28 06:34] LABS: ALKALINE PHOSPHATASE 84 U/L (45-117); ALT (GPT) 22 U/L (10-53); ANION GAP 5 MEQ/L (5-15); AST (GOT) 9 U/L (15-37); BICARBONATE 28.6 MEQ/L (21.0-32.0); BLOOD UREA NITROGEN 15 MG/DL (7-18); CHLORIDE 104 MEQ/L (98-107); GLOMERULAR FILTRATION RATE 64 ML/MIN (>89); LDL CHOLESTEROL 102 MG/DL (0-99); POTASSIUM 3.4 MEQ/L (3.5-5.1); SODIUM (NA) 138 MEQ/L (136-145); TOTAL BILIRUBIN ADULT 0.3 MG/DL (0.2-1.0)
[2017-02-28] MEDS ORDERED: POTASSIUM CHLORIDE 10 MEQ CONTROLLED RELEASE TAB PO ONE (07:00)
[2017-02-28] MEDS: ASPIRIN 325 MG TAB PO SCH (07:50)
[2017-02-28 08:00] VITALS: BP 128/79; PULSE 67; RESP 20; TEMP 98.1; O2SAT 96
[2017-02-28 08:26] VITALS: O2SAT 97
[2017-02-28] MEDS: SODIUM CHLORIDE 0.9% FLUSH 10 ML FLUSH IV FLUSH SCH (09:00)
--- NOTE | 2017-02-28 09:45 | RADRPT ---
EXAM DATE/TIME: 02/28/2017 08:39 [facility] COMPARISON: No previous studies available for comparison. INDICATIONS : Right sided tingling and numbness since yesterday morning. MEDICAL HISTORY : Hypertension. Hypothyroidism. SURGICAL HISTORY : Hysterectomy. section. Tonsillectomy. breast augmentation ENCOUNTER: Subsequent ACUITY: 2 day PAIN SCORE: 0/10 LOCATION: cranial TECHNIQUE: Multiplanar, multisequence MRI of the brain was performed without contrast. FINDINGS: CEREBRUM: The ventricles are normal for age. No evidence of midline shift, mass lesion, hemorrhage or acute in farction. No extraaxial fluid collections are seen. The pituitary gland and suprasellar cistern are normal in configuration. WHITE MATTER: No significant signal abnormalities are seen in the white matter. POSTERIOR FOSSA: The cerebellum and brainstem are intact. The 4th ventricle is midline. The cerebellopontine angle is unremarkable. The cerebellar tonsils are normal in position. DIFFUSION IMAGING: No focal areas of restricted diffusion are seen. No evidence of acute infarction. EXTRACRANIAL: The visualized portions of the orbits and paranasal sinuses are unremarkable. CONCLUSION: Negative exam. Shaun Bone MD on February 28, 2017 at 9:42 Board Certified Radiologist. This report was verified electronically.
--- NOTE | 2017-02-28 10:57 | HHI.FPPN ---
Subjective Remarks Patient seen and examined. No acute events overnight. Vital signs are within normal limits. She is very anxious this morning. Also feels depressed because of all the stress and memory loss. Does not recall speaking with her sister yesterday. Otherwise, states that the weakness in her LEs has improved but still has tingling her right hand. Reports that she was on supposed to be on Levothyroxine 100mcg at home but could not get it refilled because she could not afford to follow up with pcp. ( Carine Aldrich MD R3) Objective Vitals Vital Signs Date Time Temp Pulse Resp B/P Pulse Ox O2 Delivery O2 Flow Rate FiO2 02/28/17 08:26 97 21 02/28/17 08:00 98.1 67 20 128/79 96 02/28/17 04:32 96.1 65 20 119/70 97 02/28/17 00:00 96.2 75 18 139/77 97 02/27/17 20:00 96.2 77 20 133/81 95 02/27/17 16:12 78 02/27/17 15:56 97.8 67 20 173/87 98 02/27/17 12:59 98.1 77 16 138/90 97 02/27/17 12:22 89 16 182/82 100 Room Air I/O 02/27/17 02/27/17 02/27/17 02/28/17 02/28/17 02/28/17 07:00 15:00 23:00 07:00 15:00 23:00 Intake Total 780 ml Balance 780 ml Intake Oral 780 ml # Voids 4 2 # Bowel Movements 0 0 (Carine Aldrich MD R3) Result Diagram: 02/28/17 0500 02/28/17 0500 Imaging Brain MRI 02/28/17 0000 Signed Impressions: Service Date/Time: Tuesday, February 28, 2017 08:39 - CONCLUSION: Negative exam. Shaun Bone MD Head CT 02/27/17 0000 Signed Impressions: Service Date/Time: February 08:46 - CONCLUSION: No acute disease. Tristin Dunn MD Carotid Artery Ultrasound 02/27/17 0000 Signed Impressions: Service Date/Time: February 18:03 - CONCLUSION: Normal examination. Kalina De Souza MD Objective Remarks GENERAL: WNWD CF lying in bed in no acute distress, appears anxious and tearful. SKIN: No rashes or lesions. Clear and dry. HEAD: Atraumatic. Normocephalic. EYES: Pupils equal and round. No scleral icterus. No injection or drainage. ENT: total upper plate in mouth, no pharyngeal erythema NECK: Trachea midline. CARDIOVASCULAR: Regular rate and rhythm. No murmur appreciated. RESPIRATORY: No accessory muscle use. Clear to auscultation. Breath sounds equal bilaterally. GASTROINTESTINAL: Abdomen soft, non-tender, nondistended. Active BS MUSCULOSKELETAL: No obvious deformities. No clubbing. No cyanosis. No edema. NEUROLOGICAL: Awake and alert. No focal neurological deficits.Normal speech. PSYCHIATRIC: Appropriate mood and affect; insight and judgment normal. Somewhat anxious and emotional. (Carine Aldrich MD R3) A/P Assessment and Plan 51 yo F presenting with right sided facial/upper extremity paresthesias, likely TIA vs. anxiety vs. hypothyroidism s/d/w Dr. Barker Discharge Planning ANTICIPATE DC TODAY. Will need follow up with pcp within one week. (Carine Aldrich MD R3) Attending Attestation Patient examined and case discussed with resident physician I have read the above note and agree with the assessment/plan as discussed with me I was involved in all medical decision making for this patient Devan Barker M.D. (Devan Barker MD) Problem List: (1) Abnormal neurological findings Status: Acute Plan: Neurologic findings including right sided facial paresthesia, right upper extremity and right lower extremity paresthesias with subjective weakness MRI brain, CT head, and carotid u/s were all negative. ECHO 55-60%. No focal neurological deficits on exam today. Symptoms likely secondary to possible TIA vs. hypothyroidism vs. anxiety. -Neurology consulted: * Recommends ASA 81mg * Bilateral fine hand tremors likely related to thyroid disorder or exaggerated physiological tremor -Lipid profile WNL. Will discontinue statin given low risk. -Patient is ambulating around without difficulties. Does not need PT/OT evaluation -Continue Levothyroxine 75mcg. Will need outpatient follow up with a pcp to manage her hypothyroidism. (2) Chest pain Status: Acute Plan: Atypical chest pain, right sided and worse with inspiration. ACS ruled out. Cardiac enzymes unremarkable. Normal sinus rhythm on EKG Chest pain likely secondary to anxiety. (3) Headache Status: Chronic Plan: CT and MRI negative. - Anxiety could play a role in this, headaches are chronic in nature. Follow up with pcp for management of anxiety - NSAIDs prn (4) Hypothyroid Status: Acute Plan: TSH 22.8, Free T4 0.69, Free T3 2.77 -Continue Levothyroxine 75mcg, will likely need to increase dose in the future. Patient was on 100mcg at one point. -Follow up with PCP for management as outpatient. Patient is self pay and states that she could not afford to see her pcp. Will consult CM to see if she qualifies for patient's assistance. (5) Hypertension Status: Chronic Plan: BP stable (6) FEN / Prophylaxis Status: Acute Plan: Fluids: Encourage oral fluid hydration. Electrolytes: K 3.4; will replete with KCl 40mEq x 1 Nutrition: Regular diet as tolerated Prophylaxis: Lovenox 40 mg SQ daily (Carine Aldrich MD R3) Problem Qualifiers (1) Chest pain: Qualified Code: R07.9 - Chest pain, unspecified type (2) Hypertension: Qualified Code: I10 - Essential hypertension Carine Aldrich MD R3 Feb 28, 2017 10:57 Devan Barker MD Feb 28, 2017 14:45 Carine Aldrich MD R3 Feb 28, 2017 10:57
[2017-02-28] MEDS ORDERED: LEVO.075 PO (11:01)
[2017-02-28] MEDS ORDERED: ASPI1TAB69 PO (11:01)
--- NOTE | 2017-02-28 11:02 | HHI.DCPOC ---
Discharge Care Plan Diagnosis: (1) Chest pain (2) Hypothyroid (3) Anxiety Goals to Promote Your Health * To prevent worsening of your condition and complications * To maintain your health at the optimal level Directions to Meet Your Goals Take your medications as prescribed Follow your dietary instruction Follow activity as directed Keep your appointments as scheduled Take your immunizations and boosters as scheduled If your symptoms worsen call your PCP, if no PCP go to Urgent Care Center or Emergency Room Smoking is Dangerous to Your Health. Avoid second hand smoke Call the 24-hour hour crisis hotline for domestic abuse at Carine Aldrich MD R3 Feb 28, 2017 11:02
[2017-02-28 12:00] VITALS: BP 163/88; PULSE 65; RESP 20; TEMP 97.3; O2SAT 98
[2017-02-28] MEDS: ENOXAPARIN SODIUM 40 MG/0.4 ML SYRINGE SQ SCH (13:00)
--- NOTE | 2017-02-28 19:38 | EKG ---
Date Performed: 02/27/2017 Time Performed: 15:10:46 PTAGE: 51 years EKG: Sinus rhythm Compared to prior tracing no significant change NORMAL ECG PREVIOUS TRACING : 09/05/2007 17.57 DOCTOR: Mu Rubalcava Interpretating Date/Time 02/28/2017 19:34:27
[2017-03-11] MEDS ORDERED: ADVI200C PO (14:41)
[2017-03-11] MEDS ORDERED: LEVO75TA3 PO (15:00)
== END 2017-02-28 15:06 | disposition home or self-care (01) ==
LOC: NEPC 07:46 → NEDA 10:01 → NEPFCDU 12:53
PROVIDERS: ADMIT Family Medicine; ATTEND Family Medicine
DX: G45.9 Transient cerebral ischemic attack, unspecified (principal); R20.0 Anesthesia of skin; I10 Essential (primary) hypertension; R51 Headache; R25.1 Tremor, unspecified; F17.210 Nicotine dependence, cigarettes, uncomplicated; R61 Generalized hyperhidrosis; R07.9 Chest pain, unspecified; E03.9 Hypothyroidism, unspecified; Z87.19 Personal history of other diseases of the digestive system
CPT/HCPCS: 70450; 70551; 80048; 80053; 80061; 82550; 82948; 83036; 83735; 84439; 84443; 84481; 84484; 85025; 85610; 85730; 93005; 93306; 93880; 94150; 96374; 97161; 97166; 99285; G0378; G8987; G8988; J0360; J1650

== ENCOUNTER 2017-03-14 18:08 | Emergency (ER) | payer SELFPAY ==
[~2017-03-14] VITALS: Ht 157.5 cm; Wt 78.0 kg
[~2017-03-14 18:08] MED LIST changes: +ADVI200C PO; +ASPI1TAB69 PO; -HYDR-3533 PO; +LEVO75TA3 PO; -SYNT88TA PO
[2017-03-14 18:10] VITALS: BP 184/98; PULSE 76; RESP 15; TEMP 98.5; O2SAT 100
--- NOTE | 2017-03-14 18:27 | PD ---
HPI Chief Complaint: Numbness/Tingling Time Seen by Provider: 18:25 Travel History International Travel<30 days: No Contact w/Intl Traveler<30days: No Traveled to known affect area: No History of Present Illness HPI Please refer to the mid-level provider recommendation. PFSH Past Medical History Blood Disorders: No Anxiety: Yes Depression: Yes Heart Rhythm Problems: No Cardiac Catheterization: No Cardiovascular Problems: No High Cholesterol: No Chest Pain: Yes (HX STRESS TEST) Congestive Heart Failure: No Cerebrovascular Accident: Yes (TIA) Diabetes: No Diminished Hearing: No Endocrine: Yes Genitourinary: No Hypertension: Yes Musculoskeletal: No Neurologic: Yes Psychiatric: Yes Reproductive: No Respiratory: Yes Immunizations Current: Yes Myocardial Infarction: No Pancreatitis: Yes Thyroid Disease: Yes Past Surgical History Section: Yes (X2) Coronary Artery Bypass Graft: No Eye Surgery: Yes (CATARACTS) Hysterectomy: Yes (PARTIAL 1996) Tonsillectomy: Yes Other Surgery: Yes (BREAST AUGMENTATION 2005) Social History Alcohol Use: Yes (RARELY) Tobacco Use: Yes (1/2PPD) Substance Use: No Allergies-Medications (Allergen,Severity, Reaction): Coded Allergies: Penicillin (Verified Allergy, Severe, SWELLING,HIVES, 03/11/17) Tylenol/Codeine (Verified Allergy, Severe, SWELLING,HIVES, 03/11/17) Darvocet-N 100 (Verified Adverse Reaction, Severe, CHEST PAIN,ABDOMINAL PAIN, 03/11/17) Erythromycin (Verified Adverse Reaction, Intermediate, Nausea/Vomiting, 03/11/17) Reported Meds & Prescriptions Reported Meds & Active Scripts Active Vistaril (Hydroxyzine Pamoate) 25 Mg Cap 25 Mg PO Q6H PRN Levothyroxine (Levothyroxine Sodium) 75 Mcg Tab 75 Mcg PO DAILY Reported Advil (Ibuprofen) 200 Mg Tab 800 Mg PO Q6H PRN Advil Pm (Ibuprofen-Diphenhydramine) 200-25 Mg Cap 2 Cap PO HS PRN Physical Exam Narrative Please refer to the mid-level provider documentation. Data Data Last Documented VS Vital Signs Date Time Temp Pulse Resp B/P Pulse Ox O2 Delivery O2 Flow Rate FiO2 03/14/17 18:40 Room Air 03/14/17 18:10 98.5 76 15 184/98 100 Orders Electrocardiogram (03/14/17 18:32) Complete Blood Count With Diff (03/14/17 18:32) Comprehensive Metabolic Panel (03/14/17 18:32) Iv Access Insert/Monitor (03/14/17 18:32) Magnesium (Mg) (03/14/17 18:32) Thyroid Stimulating Hormone (03/14/17 18:32) Lorazepam Inj (Ativan Inj) (03/14/17 18:45) Labs Laboratory Tests Test 03/14/17 19:00 White Blood Count 8.5 TH/MM3 Red Blood Count 3.85 MIL/MM3 Hemoglobin 13.2 GM/DL Hematocrit 37.6 % Mean Corpuscular Volume 97.5 FL Mean Corpuscular Hemoglobin 34.3 PG Mean Corpuscular Hemoglobin 35.1 % Concent Red Cell Distribution Width 13.4 % Platelet Count 321 TH/MM3 Mean Platelet Volume 9.0 FL Neutrophils (%) (Auto) 52.3 % Lymphocytes (%) (Auto) 31.5 % Monocytes (%) (Auto) 11.8 % Eosinophils (%) (Auto) 3.6 % Basophils (%) (Auto) 0.8 % Neutrophils # (Auto) 4.4 TH/MM3 Lymphocytes # (Auto) 2.7 TH/MM3 Monocytes # (Auto) 1.0 TH/MM3 Eosinophils # (Auto) 0.3 TH/MM3 Basophils # (Auto) 0.1 TH/MM3 CBC Comment DIFF FINAL Differential Comment Sodium Level 140 MEQ/L Potassium Level 4.1 MEQ/L Chloride Level 103 MEQ/L Carbon Dioxide Level 30.5 MEQ/L Anion Gap 7 MEQ/L Blood Urea Nitrogen 12 MG/DL Creatinine 0.72 MG/DL Estimat Glomerular Filtration 85 ML/MIN Rate Random Glucose 74 MG/DL Calcium Level 9.1 MG/DL Magnesium Level 2.3 MG/DL Total Bilirubin 0.2 MG/DL Aspartate Amino Transf 17 U/L (AST/SGOT) Alanine Aminotransferase 31 U/L (ALT/SGPT) Alkaline Phosphatase 94 U/L Total Protein 7.5 GM/DL Albumin 3.7 GM/DL Thyroid Stimulating Hormone 4.930 uIU/ML 3rd Gen [facility] Medical Decision Making Medical Screen Exam Complete: Yes Emergency Medical Condition: Yes Differential Diagnosis Please refer to mid level note Narrative Course Please refer to mid level note Scripts Hydroxyzine Pamoate (Vistaril)25 Mg Cap25 Mg PO Q6H PRN (ANXIETY) #20 CAP Ref 0 Prov:Meadows,Gregory C. MD 03/14/17 Gregory Meadows MD March 14, 2017 18:27
[2017-03-14] MEDS ORDERED: LORazepam 2 MG/ML VIAL IV PUSH ONE (18:45)
--- NOTE | 2017-03-14 18:45 | PD ---
HPI Chief Complaint: Numbness/Tingling Time Seen by Provider: 18:30 Travel History International Travel<30 days: No Contact w/Intl Traveler<30days: No Traveled to known affect area: No History of Present Illness HPI Patient was examined in the presence of a nurse. This is a 51-year-old female who for 2 weeks is been experiencing paresthesias to the face, arms as well as a tremor in the hands. He was initially seen here on February 27 and admitted for possible stroke/TIA. She underwent CT of the brain which is normal, ultrasound of the carotids which was normal, MRI of the brain which was normal. He has H at 20 with a history of hypothyroidism, she has been off of Synthroid for over a year. She was started back on Synthroid and she has reportedly been using as prescribed for the past 2 weeks. Her paresthesias, or seems to have persisted and worsened which prompted evaluation. On examination now she is tearful, anxious, concerned that she may have aspartame poisoning. She notes that she drinks 4-5 cans of Mountain Dew a day. She reports that she had the symptoms once before, several years ago in [place], and she was told by someone that she had aspartame poisoning. She does not know the details of this event but she reports that her current symptoms are similar. She denies any drug or alcohol use. Denies any focal weakness, slurred speech, blurred vision. She has no other complaints. PFSH Past Medical History Blood Disorders: No Anxiety: Yes Depression: Yes Heart Rhythm Problems: No Cardiac Catheterization: No Cardiovascular Problems: No High Cholesterol: No Chest Pain: Yes (HX STRESS TEST) Congestive Heart Failure: No Cerebrovascular Accident: Yes (TIA) Diabetes: No Diminished Hearing: No Endocrine: Yes Genitourinary: No Hypertension: Yes Musculoskeletal: No Neurologic: Yes Psychiatric: Yes Reproductive: No Respiratory: Yes Immunizations Current: Yes Myocardial Infarction: No Pancreatitis: Yes Thyroid Disease: Yes Past Surgical History Section: Yes (X2) Coronary Artery Bypass Graft: No Eye Surgery: Yes (CATARACTS) Hysterectomy: Yes (PARTIAL 1996) Tonsillectomy: Yes Other Surgery: Yes (BREAST AUGMENTATION 2005) Social History Alcohol Use: Yes (RARELY) Tobacco Use: Yes (1/2PPD) Substance Use: No Allergies-Medications (Allergen,Severity, Reaction): Coded Allergies: Penicillin (Verified Allergy, Severe, SWELLING,HIVES, 5/2/17) Tylenol/Codeine (Verified Allergy, Severe, SWELLING,HIVES, 03/11/17) Darvocet-N 100 (Verified Adverse Reaction, Severe, CHEST PAIN,ABDOMINAL PAIN, 03/11/17) Erythromycin (Verified Adverse Reaction, Intermediate, Nausea/Vomiting, 03/11/17) Reported Meds & Prescriptions Reported Meds & Active Scripts Active Vistaril (Hydroxyzine Pamoate) 25 Mg Cap 25 Mg PO Q6H PRN Levothyroxine (Levothyroxine Sodium) 75 Mcg Tab 75 Mcg PO DAILY Reported Advil (Ibuprofen) 200 Mg Tab 800 Mg PO Q6H PRN Advil Pm (Ibuprofen-Diphenhydramine) 200-25 Mg Cap 2 Cap PO HS PRN Review of Systems Except as stated in HPI: all other systems reviewed are Neg Physical Exam Narrative GENERAL: This is a well-developed well-nourished female who is anxious, tearful on examination. SKIN: Warm and dry. HEAD: Atraumatic. Normocephalic. EYES: Pupils equal and round. No scleral icterus. No injection or drainage. ENT: No nasal bleeding or discharge. Mucous membranes pink and moist. NECK: Trachea midline. No JVD. CARDIOVASCULAR: Regular rate and rhythm. No murmur appreciated. RESPIRATORY: No accessory muscle use. Clear to auscultation. Breath sounds equal bilaterally. GASTROINTESTINAL: Abdomen soft, non-tender, nondistended. Hepatic and splenic margins not palpable. MUSCULOSKELETAL: No obvious deformities. No clubbing. No cyanosis. No edema. NEUROLOGICAL: Awake and alert. No obvious cranial nerve deficits. Motor grossly within normal limits. Normal speech. Normal finger to nose. Normal talent program manager strength, 5 out of 5 muscle strength in the upper and lower extremities. PSYCHIATRIC: Anxious, tearful. Data Data Last Documented VS Vital Signs Date Time Temp Pulse Resp B/P Pulse Ox O2 Delivery O2 Flow Rate FiO2 03/14/17 18:40 Room Air 03/14/17 18:10 98.5 76 15 184/98 100 Orders Electrocardiogram (03/14/17 18:32) Complete Blood Count With Diff (03/14/17 18:32) Comprehensive Metabolic Panel (03/14/17 18:32) Iv Access Insert/Monitor (03/14/17 18:32) Magnesium (Mg) (03/14/17 18:32) Thyroid Stimulating Hormone (03/14/17 18:32) Lorazepam Inj (Ativan Inj) (03/14/17 18:45) Labs Laboratory Tests Test 03/14/17 19:00 White Blood Count 8.5 TH/MM3 Red Blood Count 3.85 MIL/MM3 Hemoglobin 13.2 GM/DL Hematocrit 37.6 % Mean Corpuscular Volume 97.5 FL Mean Corpuscular Hemoglobin 34.3 PG Mean Corpuscular Hemoglobin 35.1 % Concent Red Cell Distribution Width 13.4 % Platelet Count 321 TH/MM3 Mean Platelet Volume 9.0 FL Neutrophils (%) (Auto) 52.3 % Lymphocytes (%) (Auto) 31.5 % Monocytes (%) (Auto) 11.8 % Eosinophils (%) (Auto) 3.6 % Basophils (%) (Auto) 0.8 % Neutrophils # (Auto) 4.4 TH/MM3 Lymphocytes # (Auto) 2.7 TH/MM3 Monocytes # (Auto) 1.0 TH/MM3 Eosinophils # (Auto) 0.3 TH/MM3 Basophils # (Auto) 0.1 TH/MM3 CBC Comment DIFF FINAL Differential Comment Sodium Level 140 MEQ/L Potassium Level 4.1 MEQ/L Chloride Level 103 MEQ/L Carbon Dioxide Level 30.5 MEQ/L Anion Gap 7 MEQ/L Blood Urea Nitrogen 12 MG/DL Creatinine 0.72 MG/DL Estimat Glomerular Filtration 85 ML/MIN Rate Random Glucose 74 MG/DL Calcium Level 9.1 MG/DL Magnesium Level 2.3 MG/DL Total Bilirubin 0.2 MG/DL Aspartate Amino Transf 17 U/L (AST/SGOT) Alanine Aminotransferase 31 U/L (ALT/SGPT) Alkaline Phosphatase 94 U/L Total Protein 7.5 GM/DL Albumin 3.7 GM/DL Thyroid Stimulating Hormone 4.930 uIU/ML 3rd Gen [facility] Medical Decision Making Medical Screen Exam Complete: Yes Emergency Medical Condition: Yes Medical Record Reviewed: Yes Interpretation(s) EKG normal sinus rhythm Differential Diagnosis Electrolyte disturbance, conversion reaction, hypothyroidism, CVA, cervical radiculopathy, Lyme disease, multiple sclerosis Narrative Course His is a 51-year-old female who for 2 weeks has been experiencing generalized facial and arm paresthesias as well as a tremor in the hands bilaterally. She was admitted on February 27 and had a negative stroke workup. She was restarted on Synthroid for hypothyroidism. Examination reveals no focal neurologic abnormalities. She is very anxious and tearful at this time. She is concerned that she may have aspartame poisoning. She reports that she drinks 4-5 ounces a day. Plan would be for basic lab work, TSH. She will be given IV Ativan for her anxiety. Likely this patient would be stable for outpatient follow-up with a neurologist. Additional neurologic imaging does not appear to be indicated given her recent MRI, CT, carotid ultrasound and nonfocal neurologic symptoms. The patient's lab work is been reviewed. Her TSH is improved to 4.9. Her lab work is otherwise unremarkable. The plan at this time would be to continue on the levothyroxine, discontinue the caffeinated soft drinks and follow-up with her primary care physician to continue monitoring her TSH. If her paresthesia symptoms persist, she may benefit from outpatient neurology follow-up through her primary care physician. She is requesting a prescription for anxiety so she will be given a course of Vistaril. She is stable for discharge. Procedures EKG Prior to Arrival: Yes Diagnosis Primary Impression: Paresthesias Additional Instructions: As discussed, follow-up with her primary care physician, quit drinking caffeinated drinks. Cutting back on caffeine can cause headaches so keep this in mind. Vistaril for anxiety. Do not drive or drink alcohol when using this medication. Continue taking levothyroxine as prescribed. Return for any emergent medical conditions. Med/Other Pt SpecificInfo: Prescription(s) given Scripts Hydroxyzine Pamoate (Vistaril)25 Mg Cap25 Mg PO Q6H PRN (ANXIETY) #20 CAP Ref 0 Prov:Gregory Meadows MD 03/14/17 Disposition: 01 DISCHARGE HOME Condition: Stable Isai Childers March 14, 2017 18:45
[2017-03-14] MEDS ORDERED: IBUP-988 PO (19:20)
[2017-03-14 19:36] LABS: AUTOMATED NEUTROPHIL # 4.4 TH/MM3 (1.8-7.7); BASOPHIL # 0.1 TH/MM3 (0-0.2); BASOPHIL % 0.8 % (0.0-2.0); EOSINOPHIL # 0.3 TH/MM3 (0-0.4); EOSINOPHIL % 3.6 % (0.0-4.0); HEMATOCRIT 37.6 % (35.0-46.0); HEMO FLAGS DIFF FINAL; LYMPH % 31.5 % (9.0-44.0); LYMPHOCYTE # 2.7 TH/MM3 (1.0-4.8); MEAN CELL VOLUME 97.5 FL (80.0-100.0); MEAN CORPUSCULAR HEMOGLOBIN 34.3 PG (27.0-34.0); MEAN CORPUSCULAR HGB CONC 35.1 % (32.0-36.0); MONO % 11.8 % (0.0-8.0); NEUT % 52.3 % (16.0-70.0); PLATELET COUNT 321 TH/MM3 (150-450); RED BLOOD COUNT 3.85 MIL/MM3 (4.00-5.30); RED CELL DISTRIBUTION WIDTH 13.4 % (11.6-17.2); WHITE BLOOD COUNT 8.5 TH/MM3 (4.0-11.0)
[2017-03-14 20:05] LABS: ANION GAP 7 MEQ/L (5-15); AST (GOT) 17 U/L (15-37); BICARBONATE 30.5 MEQ/L (21.0-32.0); BLOOD UREA NITROGEN 12 MG/DL (7-18); CHLORIDE 103 MEQ/L (98-107); GLOMERULAR FILTRATION RATE 85 ML/MIN (>89); MAGNESIUM 2.3 MG/DL (1.5-2.5); POTASSIUM 4.1 MEQ/L (3.5-5.1); SODIUM (NA) 140 MEQ/L (136-145)
[2017-03-14 20:09] LABS: ALKALINE PHOSPHATASE 94 U/L (45-117); ALT (GPT) 31 U/L (10-53); TOTAL BILIRUBIN ADULT 0.2 MG/DL (0.2-1.0)
[2017-03-14] MEDS ORDERED: VIST25CA PO (20:17)
--- NOTE | 2017-03-15 10:06 | EKG ---
Date Performed: 03/14/2017 Time Performed: 19:39:30 PTAGE: 51 years EKG: Sinus rhythm NORMAL ECG PREVIOUS TRACING : 02/27/2017 15.10 DOCTOR: Estrella Currie Interpretating Date/Time 03/15/2017 10:04:40
== END 2017-03-14 21:15 | disposition home or self-care (01) ==
LOC: NEPD 18:08
DX: R20.2 Paresthesia of skin (principal); E03.9 Hypothyroidism, unspecified; I10 Essential (primary) hypertension; F17.200 Nicotine dependence, unspecified, uncomplicated; Z79.899 Other long term (current) drug therapy
CPT/HCPCS: 80053; 83735; 84443; 85025; 93005; 96374; 99284; J2060

== ENCOUNTER 2018-09-06 05:52 | Observation (INO) ==
[2018-09-06] MEDS ORDERED: Morphine Inj 4 MG/ML Vial IV.PUSH ONE (06:45)
--- NOTE | 2018-09-06 07:20 | ED ---
HPI General Chief Complaint: Chest Pain Stated Complaint: Chest pain Time Seen by Provider: 09/06/18 06:26 Source: patient Mode of arrival: ambulatory Limitations: no limitations History of Present Illness HPI narrative: 53-year-old female came to the emergency room with history of substernal chest pain radiating to her back and upper shoulders bilaterally. Patient says this started last night. Is progressively worsening. Patient was hypertensive when I went to see her with systolic blood pressure of 205. Patient says that she does not have history of hypertension and is on no medications for high blood pressure. No aggravating or relieving symptoms. Patient is a smoker. No history of previous coronary artery disease. She is currently being worked up for Lyme's disease for generalized body aches by her primary care. MD complaint: Reports chest pain STEMI Alert: No Onset (ago): hour(s) Duration: constant Onset: during rest Pain location: Reports substernal Severity: severe Quality: Reports sharp Pain radiation: Reports other (Back) Relieving factors: nothing Exacerbating factors: nothing Related Data Home Medications Medication Instructions Recorded Confirmed escitalopram oxalate [Lexapro] 15 mg PO DAILY 09/06/18 09/06/18 levothyroxine 88 mcg PO DAILY 09/06/18 09/06/18 Previous Rx's Medication Instructions Recorded nitroglycerin [Nitrostat] 0.3 mg SUBLINGUAL Q5-15M PRN #10 09/07/18 tab Allergies Allergy/AdvReac Type Severity Reaction Status Date / Time acetaminophen Allergy Severe SWELLING,HI Unverified 09/06/18 06:01 VES codeine Allergy Severe SWELLING,HI Unverified 09/06/18 06:01 VES penicillin G Allergy Severe SWELLING,HI Unverified 09/06/18 06:01 VES propoxyphene AdvReac Severe CHEST Unverified 09/06/18 06:01 PAIN,ABDOMINAL PAIN erythromycin base AdvReac Intermediate Nausea/Vomi Unverified 09/06/18 06:01 ting Review of Systems ROS: all other systems reviewed are negative [facility] Medical History Medical History delivery delivered (Acute) H/O: hysterectomy (Acute) Hypertension (Acute) Social History Social History Substance History: No History of Abuse Second Hand Smoke Exposure: Yes Smoking Status: Current every day smoker Tobacco Type: Cigarettes How Often Do You Have a Drink Containing Alcohol: Monthly or less Recent Travel in [facility] within the Last 8 Weeks: No Recent Out of Country Travel within the Last 8 Weeks: No Immunization History Tetanus Immunization: >5 Years Exam Narrative Exam Narrative: GENERAL: Awake, alert, anxious, moderate distress SKIN: Focused skin assessment warm/dry. HEAD: Atraumatic. Normocephalic. EYES: Pupils equal and round. No scleral icterus. No injection or drainage. ENT: No nasal bleeding or discharge. Mucous membranes pink and moist. NECK: Trachea midline. No JVD. CARDIOVASCULAR: Regular rate and rhythm. No murmur appreciated. RESPIRATORY: No accessory muscle use. Clear to auscultation. Breath sounds equal bilaterally. GASTROINTESTINAL: Abdomen soft, non-tender, nondistended. Hepatic and splenic margins not palpable. MUSCULOSKELETAL: No obvious deformities. No clubbing. No cyanosis. No edema. NEUROLOGICAL: Awake and alert. No obvious cranial nerve deficits. Motor grossly within normal limits. Normal speech. PSYCHIATRIC: Appropriate mood and affect; insight and judgment normal. Course Initial Documented Vital Signs Temperature 97.4 F L 09/06/18 05:56 Pulse Rate 72 09/06/18 05:56 Respiratory Rate 24 09/06/18 05:56 Blood Pressure 218/102 H 09/06/18 05:56 Pulse Oximetry 99 09/06/18 05:56 Last Documented Vital Signs Temperature 98.7 F 09/07/18 12:00 Pulse Rate 62 09/07/18 12:00 Respiratory Rate 16 09/07/18 12:00 Blood Pressure 129/78 09/07/18 12:00 Pulse Oximetry 96 09/07/18 12:00 Medical Decision Making MDM Narrative Medical decision making narrative: 7:20 AM patient was given IV morphine for pain and sublingual nitro. Awaiting for blood test results and CAT scan. Case was signed out to the oncoming ER physician. 8:56 AM. Patient will be admitted to the chest pain center. Medical Screen Exam Complete: Yes Emergency Medical Condition: Yes Lab Data Lab results reviewed: Yes I reviewed the patient's lab results. Result diagrams: 09/06/18 07:00 09/06/18 07:00 Lab Results 09/06/18 09/06/18 09/06/18 Range/Units 07:00 07:00 07:00 WBC 9.0 (4.0-11.0) th/mm3 RBC 4.19 (4.00-5.30) mil/mm3 Hgb 14.1 (11.6-15.3) gm/dL Hct 40.5 (35.0-46.0) % MCV 96.7 (80.0-100.0) fL MCH 33.6 (27.0-34.0) pg MCHC 34.7 (32.0-36.0) % RDW 14.6 (11.6-17.2) % Plt Count 317 (150-450) th/mm3 MPV 9.2 (7.0-11.0) fL Neut % (Auto) 57.4 (16.0-70.0) % Lymph % (Auto) 27.0 (9.0-44.0) % [place] % (Auto) 12.3 H (0.0-8.0) % Eos % (Auto) 2.5 (0.0-4.0) % Baso % (Auto) 0.8 (0.0-2.0) % Neut # (Auto) 5.2 (1.8-7.7) th/mm3 Lymph # (Auto) 2.4 (1.0-4.8) th/mm3 [place] # (Auto) 1.1 H (0.0-0.9) th/mm3 Eos # (Auto) 0.2 (0.0-0.4) th/mm3 Baso # (Auto) 0.1 (0.0-0.2) th/mm3 WBC Differential . Differential Comment Auto diff final PT 9.2 L (9.8-11.6) sec INR 0.9 Ratio Sodium 140 (136-145) meq/L Potassium 4.1 (3.5-5.1) meq/L Chloride 106 (98-107) meq/L Carbon Dioxide 26.5 (21.0-32.0) meq/L Anion Gap 8 (5-15) meq/L BUN 13 (7-18) mg/dL Creatinine 0.75 (0.50-1.00) mg/dL Estimated GFR 80 L (>89) mL/min Random Glucose 94 (74-106) mg/dL Calcium 8.2 L (8.5-10.1) mg/dL Total Bilirubin 0.2 (0.2-1.0) mg/dL AST 19 (15-37) U/L ALT 43 (10-53) U/L Alkaline Phosphatase 108 (45-117) U/L Total Creatine Kinase (26-192) U/L Troponin I Less than 0.02 L (0.02-0.05) ng/mL B-Natriuretic Peptide (0-100) pg/mL Total Protein 7.1 (6.4-8.2) g/dL Albumin 3.4 (3.4-5.0) g/dL Lipase (73-393) U/L 09/06/18 09/06/18 09/06/18 Range/Units 07:00 09:56 12:00 WBC (4.0-11.0) th/mm3 RBC (4.00-5.30) mil/mm3 Hgb (11.6-15.3) gm/dL Hct (35.0-46.0) % MCV (80.0-100.0) fL MCH (27.0-34.0) pg MCHC (32.0-36.0) % RDW (11.6-17.2) % Plt Count (150-450) th/mm3 MPV (7.0-11.0) fL Neut % (Auto) (16.0-70.0) % Lymph % (Auto) (9.0-44.0) % [place] % (Auto) (0.0-8.0) % Eos % (Auto) (0.0-4.0) % Baso % (Auto) (0.0-2.0) % Neut # (Auto) (1.8-7.7) th/mm3 Lymph # (Auto) (1.0-4.8) th/mm3 [place] # (Auto) (0.0-0.9) th/mm3 Eos # (Auto) (0.0-0.4) th/mm3 Baso # (Auto) (0.0-0.2) th/mm3 WBC Differential Differential Comment PT (9.8-11.6) sec INR Ratio Sodium (136-145) meq/L Potassium (3.5-5.1) meq/L Chloride (98-107) meq/L Carbon Dioxide (21.0-32.0) meq/L Anion Gap (5-15) meq/L BUN (7-18) mg/dL Creatinine (0.50-1.00) mg/dL Estimated GFR (>89) mL/min Random Glucose (74-106) mg/dL Calcium (8.5-10.1) mg/dL Total Bilirubin (0.2-1.0) mg/dL AST (15-37) U/L ALT (10-53) U/L Alkaline Phosphatase (45-117) U/L Total Creatine Kinase 137 140 (26-192) U/L Troponin I Less than 0.02 L Less than 0.02 L (0.02-0.05) ng/mL B-Natriuretic Peptide 30 (0-100) pg/mL Total Protein (6.4-8.2) g/dL Albumin (3.4-5.0) g/dL Lipase 173 (73-393) U/L Imaging Data Attestation: I personally reviewed and interpreted this imaging study as follows : Radiologist's impression: Gallbladder Ultrasound 09/06/18 00:00 CONCLUSION: 1. The gallbladder is distended with few nonmobile gallstones. No definite gallbladder wall thickening or evidence of acute cholecystitis Chest X-Ray 09/06/18 06:45 CONCLUSION: Hazy opacity at the left base could be related to technique and overlying soft tissue structures but may represent pleural effusion with associated volume loss and/or consolidation. Good inspiratory formal PA and lateral views of the chest may help differentiate, if needed. Thoracic Aorta CT 09/06/18 06:45 CONCLUSION: 1. No acute abnormality is identified to explain the symptoms. No aneurysm or dissection is present. There is mild atherosclerotic disease of the infrarenal aorta. 2. Cholelithiasis. 3. The right breast implant demonstrates changes suggesting rupture. This could be confirmed with elective outpatient breast MRI, if needed. Myocardial Perfusion Scan Nuc Med 09/07/18 10:50 CONCLUSION: 1. Stress-induced ischemia inferior wall with mild hypokinesis. ECG Data Attestation: I personally reviewed and interpreted this ECG as follows: Interpretation: Twelve-lead EKG was reviewed by me. Normal sinus rhythm, left axis deviation, nonspecific ST-T wave changes. Heart rate of 66 bpm. Discharge Plan Discharge Disposition Patient Disposition: 30 Still Patient Discharge Condition Condition: Good Discharge Order Discharge Orders: Discharge Order (Routine); Ordered 09/07/18 Ordered By: Nori Dawn Discharge Details Anticipated Discharge Date: 09/07/18 Diagnosis: Chest pain Physicians Team ED Provider: Bethany Lester Primary Care Provider: UNKNOWN, Attending Provider: Jaycob Sanchez Other Providers: Derrick Tellez Status ED Status: Left Department Discharge Information Discharge Date/Time: 09/06/18 12:03
[2018-09-06 07:22] LABS: INR 0.9 Ratio; Prothrombin Time 9.2 sec (9.8-11.6)
[2018-09-06 07:26] LABS: Alanine Aminotransferase 43 U/L (10-53); Albumin 3.4 g/dL (3.4-5.0); Anion Gap 8 meq/L (5-15); Aspartate Aminotransferase 19 U/L (15-37); Blood Urea Nitrogen 13 mg/dL (7-18); Calcium 8.2 mg/dL (8.5-10.1); Carbon Dioxide 26.5 meq/L (21.0-32.0); Chloride 106 meq/L (98-107); Glomerular Filtration Rate 80 mL/min (>89); Glucose,Random 94 mg/dL (74-106); Potassium 4.1 meq/L (3.5-5.1); Sodium 140 meq/L (136-145)
[2018-09-06 07:30] LABS: Alkaline Phosphatase 108 U/L (45-117); Total Protein 7.1 g/dL (6.4-8.2)
[2018-09-06 07:31] LABS: Baso # (Auto) 0.1 th/mm3 (0.0-0.2); Baso % (Auto) 0.8 % (0.0-2.0); Eos # (Auto) 0.2 th/mm3 (0.0-0.4); Eos % (Auto) 2.5 % (0.0-4.0); Hematocrit 40.5 % (35.0-46.0); Hemoglobin 14.1 gm/dL (11.6-15.3); Lymph # (Auto) 2.4 th/mm3 (1.0-4.8); Mean Corpuscular HGB Conc 34.7 % (32.0-36.0); Mean Corpuscular Hemoglobin 33.6 pg (27.0-34.0); Mean Corpuscular Volume 96.7 fL (80.0-100.0); Mean Platelet Volume 9.2 fL (7.0-11.0); Mono # (Auto) 1.1 th/mm3 (0.0-0.9); Mono % (Auto) 12.3 % (0.0-8.0); Neut # (Auto) 5.2 th/mm3 (1.8-7.7); Neut % (Auto) 57.4 % (16.0-70.0); Platelet Count 317 th/mm3 (150-450); Red Blood Count 4.19 mil/mm3 (4.00-5.30); Red Cell Distribution Width 14.6 % (11.6-17.2)
--- NOTE | 2018-09-06 07:49 | XR ---
EXAM DATE: 09/06/2018 7:42 AM EDT AGE/SEX: 53 years / Female INDICATIONS: Chest Pain CLINICAL DATA: This is the patient's initial encounter. Patient reports that signs and symptoms have been present for 1 day and indicates a pain score of 4/10. MEDICAL/SURGICAL HISTORY: . Hypertension. Hypothyroidism None. [place] [facility] [place] [facility] [place]. [facility], XR C HEST PA AND LAT, 05/25/2014. . FINDINGS: Portable AP view of the chest demonstrates a normal-sized cardiac silhouette. EKG lines overlie the p atient. Lungs are underinflated and there is hazy opacity at the left base. No pneumothorax is identi fied. No abnormality is identified on the right. The bones and soft tissues demonstrate no acute abno rmality. CONCLUSION: Hazy opacity at the left base could be related to technique and overlying soft tissue structures but may represent pleural effusion with associated volume loss and/or consolidation. Good inspiratory for mal PA and lateral views of the chest may help differentiate, if needed. Electronically signed by: Shalom Yang MD 09/06/2018 7:48 AM EDT
--- NOTE | 2018-09-06 08:49 | CT ---
EXAM DATE: 09/06/2018 8:29 AM EDT AGE/SEX: 53 years / Female INDICATIONS: Chest pain radiating to back with Shortness of breath, Nausea, and Vomiting CLINICAL DATA: This is the patient's initial encounter. Patient reports that signs and symptoms have been present for 1 day and indicates a pain score of 10/10. MEDICAL/SURGICAL HISTORY: Hypertension. Hysterectomy. section. RADIATION DOSE: 9.48 CTDI (mGy) COMPARISON: No prior exams available for comparison. TECHNIQUE: Volumetric scanning was performed using a multi-row detector CT scanner during bolus infu april of 99 ml Omnipaque 350 (iohexol) nonionic water-soluble contrast as a single exam dose. The da ta was post processed with a variety of visualization algorithms including full volume maximum intens ity projection, multi-planar sliding thin slab reformation, curved planar reformation, and surface re ndering techniques. Using automated exposure control and adjustment of the mA and/or kV according to patient size, radiation dose was kept as low as reasonably achievable to obtain optimal diagnostic q uality images. DICOM format image data is available electronically for review and comparison. FINDINGS: Aorta: The lumen is smooth without significant narrowing or aneurysm. The proximal celiac and super ior mesenteric arteries are patent and normal in diameter. There are solitary renal arteries bilater ally without gross abnormality. Right Pelvis: The right common iliac, internal iliac, and external iliac vessels are patent without luminal irregularity. Left Pelvis: The left common iliac, internal iliac, and external iliac vessels are patent and withou t luminal irregularity. Other: Lungs are clear and the mediastinum demonstrates no abnormality. Bilateral breast implants ar e present and the right implant has an abnormal appearance characteristic of rupture. The solid organ s in the abdomen are within normal limits. There are small high density stones in the gallbladder. No signs of obstruction are present. Mild sigmoid diverticulosis is present. No acute osseous abnormali ty is identified. CONCLUSION: 1. No acute abnormality is identified to explain the symptoms. No aneurysm or dissection is present. There is mild atherosclerotic disease of the infrarenal aorta. 2. Cholelithiasis. 3. The right breast implant demonstrates changes suggesting rupture. This could be confirmed with [facility] outpatient breast MRI, if needed. Electronically signed by: Shalom Yang MD 09/06/2018 8:47 AM EDT
[2018-09-06] MEDS ORDERED: Sod Chloride 0.9% Inj 1,000 ML IV.CONT SCH (09:00)
[2018-09-06 10:34] LABS: Creatine Kinase 137 U/L (26-192)
--- NOTE | 2018-09-06 10:47 | P.HPCA ---
History of Present Illness Primary Care Physician: UNKNOWN Chief Complaint: Chest pain History of Present Illness: This is a 53-year-old female the presents to ED via private vehicle with a complaint of developing a central chest discomfort that she describes as a heaviness/pressure that then radiated into her back and across both shoulder blades. She became nauseous with 2 episodes of nonbloody emesis, short of breath, and diaphoretic. Lasted a couple hours. Has never had all the symptoms at once in the past. She has become nauseous at times after eating. Cannot recall ever having her gallbladder evaluated. States that she has had pancreatitis in the past, states that discomfort was a little different. She states at that time she had discomfort across her lower chest. She has had stress test in the past. She had a nonischemic adenosine thallium stress test at this facility 2006. She also states about 5 or 6 years ago while in [place] she had another stress test that was okay. Currently denies any complaints. History of tobacco abuse. Denies hypertension, hyperlipidemia, diabetes, and known CAD. She thinks her father had an NV in his 50s but states that the time he was doing with cancer and subsequent did of cancer in his mid 50s. Patient smokes one half to three-quarter pack of cigarettes daily for 35 years. Denies alcohol or illicit drug use. - Diagnosis (1) Chest pain (2) Tobacco abuse (3) Cholelithiasis (4) Ruptured right breast implant Review of Systems General: Patient denies fevers, chills, and recent travel. HEENT: Patient denies headache, sore throat, difficulty swallowing. Cardiovascular: Has the chest discomfort as mentioned above. Denies sensation of heart beating rapidly or irregularly. No syncope. She was diaphoretic. Respiratory: She was short of breath. Denies inspirational chest discomfort. Denies coughing wheezing or hemoptysis. GI: She was nauseous with 2 episodes of nonbloody emesis. Denies abdominal pain. Patient denies diarrhea, abdominal pain, bloody stools. Musculoskeletal: Patient denies joint pain or edema. Denies calf pain or edema. Neurovascular: Patient denies numbness, tingling, weakness in extremities. Denies headache. Endocrine: Denies polyuria and polydipsia. Hematologic: Denies easy bruising. Skin: Denies rash or itching. PMFSH - History History Provided By: Patient - Medical History Medical History: Medical History (Last Reviewed 09/06/18 @ 07:18 by Bethayn Lester MD) delivery delivered H/O: hysterectomy Hypertension - Tobacco History Second Hand Smoke Exposure: Yes Tobacco Use In Past 30 Days: Yes Smoking Status: Current every day smoker Tobacco Type: Cigarettes - Alcohol History How Often Do You Have a Drink Containing Alcohol: Monthly or less - Substance Use History Substance History: No History of Abuse - Travel History Recent Travel in the [place] Within the Last 8 Weeks: No Recent Travel Out of the Country Within the Last 8 Weeks: No - Immunization History Tetanus Immunization: >5 Years Medications and Allergies Active Medications: Active Medications Sodium Chloride (Ns Inj) 1,000 mls @ 125 mls/hr IV.CONT .Q8H JENNY Last Admin: 09/06/18 10:32 Dose: 125 mls/hr Sodium Chloride (Ns Flush) 2 ml IV.FLUSH UNSCH PRN PRN Reason: FLUSH AFTER USING IV ACCESS Sodium Chloride (Ns Flush) 2 ml IV.FLUSH BID JENNY Sodium Chloride (Ns Flush) 2 ml IV.FLUSH PRN PRN PRN Reason: FLUSH AFTER USING IV ACCESS Allergies Allergy/AdvReac Type Severity Reaction Status Date / Time acetaminophen Allergy Severe SWELLING,HI Unverified 09/06/18 06:01 VES codeine Allergy Severe SWELLING,HI Unverified 09/06/18 06:01 VES penicillin G Allergy Severe SWELLING,HI Unverified 09/06/18 06:01 VES propoxyphene AdvReac Severe CHEST Unverified 09/06/18 06:01 PAIN,ABDOMINAL PAIN erythromycin base AdvReac Intermediate Nausea/Vomi Unverified 09/06/18 06:01 ting Home Medications Medication Instructions Recorded Confirmed Type escitalopram oxalate [Lexapro] 15 mg PO DAILY 09/06/18 09/06/18 History levothyroxine 88 mcg PO DAILY 09/06/18 09/06/18 History Exam Vital signs: Vital Signs 09/06/18 05:56 09/06/18 06:00 09/06/18 06:57 Temperature 97.4 F L Pulse Rate 72 79 75 Respiratory Rate 24 22 18 Blood Pressure 218/102 H 182/109 H 188/90 H Pulse Oximetry 99 99 97 09/06/18 08:42 09/06/18 10:10 Temperature Pulse Rate 68 82 Respiratory Rate 18 18 Blood Pressure 161/83 H 118/67 Pulse Oximetry 96 97 Intake & Output 09/05/18 09/06/18 09/06/18 18:59 06:59 18:59 Weight 77.111 kg Narrative: GENERAL: This is a well-nourished, well-developed patient, in no apparent distress. Patient speaks in clear complete sentences. Patient is pleasant. HEENT: Head is atraumatic and normocephalic. Neck is supple without lymphadenopathy and trachea is midline. No JVD or carotid bruits. CARDIOVASCULAR: Regular rate and rhythm without murmurs, gallops, or rubs. RESPIRATORY: Clear to auscultation. Breath sounds equal bilaterally. No wheezes , rales, or rhonchi. Chest wall is nontender. No use of accessory muscles. GASTROINTESTINAL: There is right upper quadrant tenderness with positive Martinez sign. Abdomen is nondistended. Abdomen soft. No obvious pulsatile mass or bruit. No CVA tenderness. Strong femoral pulses bilaterally. Normal bowel sounds in all quadrants. MUSCULOSKELETAL: Patient is moving upper and lower extremities freely. No calf tenderness or edema, no Homans sign. Strong pulses in upper and lower extremities. NEUROLOGICAL: Patient is alert and oriented. Cranial nerves 2-12 are grossly intact. No focal deficits and speech is clear. SKIN: No rash and turgor is normal. Results 09/06/18 07:00 09/06/18 07:00 Cardiac Enzymes 09/06/18 09/06/18 09/06/18 Range/Units 07:00 07:00 09:56 AST 19 (15-37) U/L Troponin I Less than 0.02 L Less than 0.02 L (0.02-0.05) ng/mL B-Natriuretic Peptide 30 (0-100) pg/mL Coagulation 09/06/18 09/06/18 Range/Units 07:00 07:00 PT 9.2 L (9.8-11.6) sec B-Natriuretic Peptide 30 (0-100) pg/mL CBC 09/06/18 Range/Units 07:00 WBC 9.0 (4.0-11.0) th/mm3 RBC 4.19 (4.00-5.30) mil/mm3 Hgb 14.1 (11.6-15.3) gm/dL Hct 40.5 (35.0-46.0) % Plt Count 317 (150-450) th/mm3 Neut # (Auto) 5.2 (1.8-7.7) th/mm3 Lymph # (Auto) 2.4 (1.0-4.8) th/mm3 [place] # (Auto) 1.1 H (0.0-0.9) th/mm3 Eos # (Auto) 0.2 (0.0-0.4) th/mm3 Baso # (Auto) 0.1 (0.0-0.2) th/mm3 Comprehensive Metabolic Panel 09/06/18 Range/Units 07:00 Sodium 140 (136-145) meq/L Potassium 4.1 (3.5-5.1) meq/L Chloride 106 (98-107) meq/L Carbon Dioxide 26.5 (21.0-32.0) meq/L BUN 13 (7-18) mg/dL Creatinine 0.75 (0.50-1.00) mg/dL Calcium 8.2 L (8.5-10.1) mg/dL AST 19 (15-37) U/L ALT 43 (10-53) U/L Alkaline Phosphatase 108 (45-117) U/L Total Protein 7.1 (6.4-8.2) g/dL Albumin 3.4 (3.4-5.0) g/dL Intake and Output 09/05/18 09/06/18 09/06/18 22:59 06:59 14:59 Other: Weight 77.111 kg - Imaging and Cardiology Imaging: Impressions Chest X-Ray 09/06/18 06:45 CONCLUSION: Hazy opacity at the left base could be related to technique and overlying soft tissue structures but may represent pleural effusion with associated volume loss and/or consolidation. Good inspiratory formal PA and lateral views of the chest may help differentiate, if needed. Thoracic Aorta CT 09/06/18 06:45 CONCLUSION: 1. No acute abnormality is identified to explain the symptoms. No aneurysm or dissection is present. There is mild atherosclerotic disease of the infrarenal aorta. 2. Cholelithiasis. 3. The right breast implant demonstrates changes suggesting rupture. This could be confirmed with elective outpatient breast MRI, if needed. EKG interpretations - EKG EKG shows: sinus rhythm (Initial EKG is sinus rhythm without significant ST segment depressions or elevations.) Caprini VTE Risk Assessment Caprini VTE Risk Assessment: No/Low Risk (score <= 1) Caprini Risk Assessment Model: Point Value = 1 Point Value = 2 Point Value = 3 Point Value = 5 Age 41-60 Minor surgery BMI > 25 kg/m2 Swollen legs Varicose veins or History of unexplained or recurrent spontaneous Oral contraceptives or hormone replacement Sepsis (< 1 month) Serious lung disease, including pneumonia (< 1 month) Abnormal pulmonary function Acute myocardial infarction Congestive heart failure (< 1 month) History of inflammatory bowel disease Medical patient at bed rest Age 61-74 Arthroscopic surgery Major open surgery (> 45 min) Laparoscopic surgery (> 45 min) Malignancy Confined to bed (> 72 hours) Immobilizing plaster cast Central venous access Age >= 75 History of VTE Family history of VTE Factor V Leiden Prothrombin [id number] Lupus anticoagulant Anticardiolipin antibodies Elevated serum homocysteine Heparin-induced thrombocytopenia Other congenital or acquired thrombophilia Stroke (< 1 month) Elective arthroplasty Hip, pelvis, or leg fracture Acute spinal cord injury (< 1 month) Prophylaxis Regimen: Total Risk Factor Score Risk Level Prophylaxis Regimen 0-1 Low Early ambulation 2 Moderate Order ONE of the following: *Sequential Compression Device (SCD) *Heparin 5000 units SQ BID 3-4 Higher Order ONE of the following medications: *Heparin 5000 units SQ TID *Enoxaparin/Lovenox 40 mg SQ daily (WT < 150 kg, CrCl > 30 mL/min) *Enoxaparin/Lovenox 30 mg SQ daily (WT < 150 kg, CrCl > 10-29 mL/min) *Enoxaparin/Lovenox 30 mg SQ BID (WT < 150 kg, CrCl > 30 mL/min) AND/OR *Sequential Compression Device (SCD) 5 or more Highest Order ONE of the following medications: *Heparin 5000 units SQ TID (Preferred with Epidurals) *Enoxaparin/Lovenox 40 mg SQ daily (WT < 150 kg, CrCl > 30 mL/min) *Enoxaparin/Lovenox 30 mg SQ daily (WT < 150 kg, CrCl > 10-29 mL/min) *Enoxaparin/Lovenox 30 mg SQ BID (WT < 150 kg, CrCl > 30 mL/min) AND *Sequential Compression Device (SCD) Assessment and Plan - Assessment (1) Chest pain Code(s): R07.9 - Chest pain, unspecified Status: Acute (2) Tobacco abuse Code(s): Z72.0 - Tobacco use Status: Acute (3) Cholelithiasis Code(s): K80.20 - Calculus of gallbladder without cholecystitis without obstruction Status: Acute (4) Ruptured right breast implant Code(s): T85.43XA - Leakage of breast prosthesis and implant, initial encounter Status: Acute - Plan * Chest pain: Patient will continue to have serial cardiac enzymes and EKGs for ruling out purposes. Some of her symptoms sound more GI related. CT thoracic and abdominal aorta found cholelithiasis. We will get a gallbladder ultrasound. Patient will also have a Lexiscan. Results pending the results of the studies. Patient will be evaluated by Dr. Sanchez cardiology and chest pain center. Regardless, patient should also follow-up with PCP after discharge. * Tobacco abuse: Patient counseled importance of smoking cessation. * Ruptured breast implant: This is mentioned on CT. She should discuss this with her PCP. * Cholelithiasis: We will have this evaluated with gallbladder ultrasound. (1) Chest pain Qualifiers: Chest pain type: unspecified Qualified Code(s): R07.9 - Chest pain, unspecified
[2018-09-06 11:02] LABS: Lipase 173 U/L (73-393)
[2018-09-06] MEDS ORDERED: Acetaminophen 500 MG Tablet PO PRN (11:57)
[2018-09-06 12:58] LABS: Creatine Kinase 140 U/L (26-192)
--- NOTE | 2018-09-06 13:29 | ECG ---
Date Performed: 09/06/2018 Time Performed: 10:10:34 PTAGE: 53 years EKG: SINUS BRADYCARDIA BORDERLINE ECG Lead V2 unrecorded. WARNING: DATA QUALITY MAY AFFECT INTER PRETATION PREVIOUS TRACING : 09/06/2018 06.06 DOCTOR: Richard Ji Interpretating Date/Time 09/06/2018 13:28:24
[2018-09-06] MEDS: HYDROmorphone PF Inj 1 MG/ML Ampul IV.PUSH PRN ×2 (13:46→20:49)
--- NOTE | 2018-09-06 14:01 | ECG ---
Date Performed: 09/06/2018 Time Performed: 06:06:25 PTAGE: 53 years EKG: Sinus rhythm NORMAL ECG NO PREVIOUS TRACING DOCTOR: Richard Ji Interpretating Date/Time 09/06/2018 13:59:48
--- NOTE | 2018-09-06 14:51 | US ---
EXAM DATE: 09/06/2018 2:41 PM EDT AGE/SEX: 53 years / Female INDICATIONS: Right upper quadrant pain. CLINICAL DATA: This is the patient's subsequent encounter. Patient reports that signs and symptoms h ave been present for 2 weeks and indicates a pain score of 0/10. MEDICAL/SURGICAL HISTORY: Hypertension. Hysterectomy. COMPARISON: [facility], CTA THOR ABD AORTA W CONTRAST W 3D, 09/06/2018. . MEASUREMENTS: Liver:__ 19.7 cm. Common Bile Duct:__ 5mm. FINDINGS: Liver: Liver is slightly enlarged.. Echogenicity is normal. Portal Vein: Hepatopedal flow seen in portal vein. Common Duct: No concerning masses are identified. Gallbladder: The patient does have a few small gallstones in the dependent portion of the gallbladde r. Not all of them are mobile. There is suggestion of maybe a tiny amount of pericholecystic fluid bu t no significant wall thickening. Pancreas: No solid masses identified. Pancreatic duct upper limits of normal just over 3 mm. Right Kidney: Normal echotexture and cortical thickness. No mass or hydronephrosis. Other: None. CONCLUSION: 1. The gallbladder is distended with few nonmobile gallstones. No definite gallbladder wall thickeni ng or evidence of acute cholecystitis Electronically signed by: Rony Oliveros MD 09/06/2018 2:50 PM EDT
[2018-09-06] MEDS: Escitalopram 10 MG Tablet PO SCH (18:09)
[2018-09-07 04:04] VITALS: RESP 16
[2018-09-07 07:48] VITALS: O2SAT 96
--- NOTE | 2018-09-07 08:26 | P.PNCA ---
Subjective Interval history: No complaints overnight. Medications and Allergies Active Medications: Active Medications Aspirin (Aspirin) 325 mg PO DAILY [facility] Escitalopram Oxalate (Lexapro) 15 mg PO DAILY [facility] Last Admin: 09/06/18 18:09 Dose: Not Given Hydromorphone HCl (Dilaudid Pf Inj) 0.5 mg IV.PUSH Q4H PRN PRN Reason: PAIN 8-10 Last Admin: 09/06/18 20:49 Dose: 0.5 mg Levothyroxine Sodium (Synthroid) 88 mcg PO DAILY@0600 [facility] Ondansetron HCl (Zofran Inj) 4 mg IV.PUSH Q6H PRN PRN Reason: NAUSEA OR VOMITING Last Admin: 09/06/18 21:01 Dose: 4 mg Pantoprazole Sodium (Protonix) 40 mg PO DAILY [facility] Last Admin: 09/06/18 18:10 Dose: 40 mg Sodium Chloride (Ns Flush) 2 ml IV.FLUSH UNSCH PRN PRN Reason: FLUSH AFTER USING IV ACCESS Sodium Chloride (Ns Flush) 2 ml IV.FLUSH BID [facility] Last Admin: 09/06/18 21:21 Dose: 2 ml Sodium Chloride (Ns Flush) 2 ml IV.FLUSH PRN PRN PRN Reason: FLUSH AFTER USING IV ACCESS Allergies Allergy/AdvReac Type Severity Reaction Status Date / Time acetaminophen Allergy Severe SWELLING,HI Unverified 09/06/18 06:01 VES codeine Allergy Severe SWELLING,HI Unverified 09/06/18 06:01 VES penicillin G Allergy Severe SWELLING,HI Unverified 09/06/18 06:01 VES propoxyphene AdvReac Severe CHEST Unverified 09/06/18 06:01 PAIN,ABDOMINAL PAIN erythromycin base AdvReac Intermediate Nausea/Vomi Unverified 09/06/18 06:01 ting Home Medications Medication Instructions Recorded Confirmed Type escitalopram oxalate [Lexapro] 15 mg PO DAILY 09/06/18 09/06/18 History levothyroxine 88 mcg PO DAILY 09/06/18 09/06/18 History Physical Exam Vital signs: Vital Signs 09/06/18 08:42 09/06/18 09:00 09/06/18 10:10 Temperature Pulse Rate 68 60 82 Respiratory Rate 18 18 Blood Pressure 161/83 H 118/67 Pulse Oximetry 96 97 09/06/18 12:00 09/06/18 16:00 09/06/18 19:50 Temperature 98.1 F 97.7 F 98.6 F Pulse Rate 64 67 72 Respiratory Rate 16 16 17 Blood Pressure 127/82 123/68 138/81 Pulse Oximetry 97 97 97 09/07/18 00:00 09/07/18 04:00 09/07/18 07:45 Temperature 98.6 F 98.5 F 98.6 F Pulse Rate 64 67 73 Respiratory Rate 17 16 16 Blood Pressure 119/71 133/82 140/77 Pulse Oximetry 96 97 96 Intake & Output 09/06/18 09/07/18 09/07/18 18:59 06:59 18:59 Intake Total 625 / 625 Balance 625 / 625 Weight 71.1 kg Intake: IV 625 / 625 NS Inj 1,000 ML @ 125 mls/hr IV 625 / 625 .CONT .Q8H [facility] Rx#:[id number] Other: # Voids 4 1 - Constitutional no acute distress, obese, cooperative - Routine HEENT Exam Head: Present: normocephalic, atraumatic - Routine Respiratory Exam Present: CTA bilaterally. Absent: rhonchi, wheezes, crackles - Routine Cardiovascular Exam Present: RRR. Absent: murmur, gallop, rubs - Routine Abdominal Exam Present: soft, normoactive bowel sounds Results 09/06/18 07:00 09/06/18 07:00 Cardiac Enzymes 09/06/18 09/06/18 09/06/18 Range/Units 07:00 07:00 09:56 AST 19 (15-37) U/L Troponin I Less than 0.02 L Less than 0.02 L (0.02-0.05) ng/mL B-Natriuretic Peptide 30 (0-100) pg/mL 09/06/18 Range/Units 12:00 AST (15-37) U/L Troponin I Less than 0.02 L (0.02-0.05) ng/mL B-Natriuretic Peptide (0-100) pg/mL Coagulation 09/06/18 09/06/18 Range/Units 07:00 07:00 PT 9.2 L (9.8-11.6) sec B-Natriuretic Peptide 30 (0-100) pg/mL CBC 09/06/18 Range/Units 07:00 WBC 9.0 (4.0-11.0) th/mm3 RBC 4.19 (4.00-5.30) mil/mm3 Hgb 14.1 (11.6-15.3) gm/dL Hct 40.5 (35.0-46.0) % Plt Count 317 (150-450) th/mm3 Neut # (Auto) 5.2 (1.8-7.7) th/mm3 Lymph # (Auto) 2.4 (1.0-4.8) th/mm3 [place] # (Auto) 1.1 H (0.0-0.9) th/mm3 Eos # (Auto) 0.2 (0.0-0.4) th/mm3 Baso # (Auto) 0.1 (0.0-0.2) th/mm3 Comprehensive Metabolic Panel 09/06/18 Range/Units 07:00 Sodium 140 (136-145) meq/L Potassium 4.1 (3.5-5.1) meq/L Chloride 106 (98-107) meq/L Carbon Dioxide 26.5 (21.0-32.0) meq/L BUN 13 (7-18) mg/dL Creatinine 0.75 (0.50-1.00) mg/dL Calcium 8.2 L (8.5-10.1) mg/dL AST 19 (15-37) U/L ALT 43 (10-53) U/L Alkaline Phosphatase 108 (45-117) U/L Total Protein 7.1 (6.4-8.2) g/dL Albumin 3.4 (3.4-5.0) g/dL Intake and Output 09/06/18 09/07/18 09/07/18 22:59 06:59 14:59 Intake Total 625 / 625 Balance 625 / 625 Intake: IV 625 / 625 NS Inj 1,000 ML @ 125 mls/hr IV 625 / 625 .CONT .Q8H [facility] Rx#:[id number] Other: # Voids 4 1 Weight 71.1 kg - Imaging and Cardiology Imaging: Impressions Gallbladder Ultrasound 09/06/18 00:00 CONCLUSION: 1. The gallbladder is distended with few nonmobile gallstones. No definite gallbladder wall thickening or evidence of acute cholecystitis Chest X-Ray 09/06/18 06:45 CONCLUSION: Hazy opacity at the left base could be related to technique and overlying soft tissue structures but may represent pleural effusion with associated volume loss and/or consolidation. Good inspiratory formal PA and lateral views of the chest may help differentiate, if needed. Thoracic Aorta CT 09/06/18 06:45 CONCLUSION: 1. No acute abnormality is identified to explain the symptoms. No aneurysm or dissection is present. There is mild atherosclerotic disease of the infrarenal aorta. 2. Cholelithiasis. 3. The right breast implant demonstrates changes suggesting rupture. This could be confirmed with elective outpatient breast MRI, if needed. Assessment and Plan - Assessment (1) Chest pain Code(s): R07.9 - Chest pain, unspecified Status: Acute Plan: Monitored on telemetry overnight. ACS ruled out. Proceed with plan Lexiscan this morning. If unremarkable, plans are to discharge home with follow-up with primary care provider. Verbalizes understanding and agreeable to plan of care. (2) Tobacco abuse Code(s): Z72.0 - Tobacco use Status: Chronic Plan: Strongly encouraged and stressed importance of tobacco cessation. Instructed to quit smoking. (3) Cholelithiasis Code(s): K80.20 - Calculus of gallbladder without cholecystitis without obstruction Status: Acute Plan: Follow up with primary care provider. Gallbladder ultrasound reviewed, no definite gallbladder wall thickening or evidence of acute cholecystitis. (4) Ruptured right breast implant Code(s): T85.43XA - Leakage of breast prosthesis and implant, initial encounter Status: Acute Plan: Reinforced follow-up with primary care provider and her plastic surgeon. Copies of radiology reports will be provided upon discharge, made aware of radiologist recommendation to follow up with a MRI. - Plan * Chest pain: Patient will continue to have serial cardiac enzymes and EKGs for ruling out purposes. Some of her symptoms sound more GI related. CT thoracic and abdominal aorta found cholelithiasis. We will get a gallbladder ultrasound. Patient will also have a Lexiscan. Results pending the results of the studies. Patient will be evaluated by Dr. Sanchez cardiology and chest pain center. Regardless, patient should also follow-up with PCP after discharge. * Tobacco abuse: Patient counseled importance of smoking cessation. * Ruptured breast implant: This is mentioned on CT. She should discuss this with her PCP. * Cholelithiasis: We will have this evaluated with gallbladder ultrasound. (1) Chest pain Qualifiers: Chest pain type: unspecified Qualified Code(s): R07.9 - Chest pain, unspecified (4) Ruptured right breast implant Qualifiers: Encounter type: initial encounter Qualified Code(s): T85.43XA - Leakage of breast prosthesis and implant, initial encounter
[2018-09-07] MEDS ORDERED: Levothyroxine 88 MCG Tablet PO SCH (09:00)
[2018-09-07] MEDS ORDERED: Aspirin 325 MG Tablet PO SCH (09:00)
[2018-09-07] MEDS ORDERED: Regadenoson Inj 0.4 MG/5 ML Syringe IV.PUSH ONE (09:21)
[2018-09-07] MEDS: Escitalopram 10 MG Tablet PO SCH (10:21)
--- NOTE | 2018-09-07 10:44 | NM ---
EXAM DATE: 09/07/2018 10:24 AM EDT AGE/SEX: 53 years / Female INDICATIONS:Angina. . Sub-sternal chest pain radiating to the back and shoulders. CLINICAL DATA: This is the patient's initial encounter. Patient reports that signs and symptoms have been present for 1 day and indicates a pain score of 6/10. MEDICAL/SURGICAL HISTORY: Hypertension. Hysterectomy. section. COMPARISON: No prior exams available for comparison. DOSE: 8.8 mCi Tc 99m Myoview at rest 26.5 mCi [id number] at stress 0.4 mg Lexiscan STRESS SYMPTOMS: Shortness of breath and nausea. EJECTION FRACTION: > 70 % TECHNIQUE: The patient underwent pharmacologic stress with infusion of prescribed dose. Continuous ECG tracing was monitored during stress. Gated SPECT imaging was performed after stress and conventi onal SPECT imaging was performed at rest. The examination was performed on a SPECT/CT scanner, both attenuation and non-corrected datasets were reviewed. FINDINGS: There is redistribution in the inferior wall beginning in mid ventricular wall extending towards the base. The ejection fraction is calculated at >70% in spite of mild inferior wall hypokinesis. RISK CATEGORY: Low (<1% Annual Motality Rate) CONCLUSION: 1. Stress-induced ischemia inferior wall with mild hypokinesis. Electronically signed by: Trip Andrea MD 09/07/2018 10:43 AM EDT
[2018-09-07] MEDS ORDERED: Ibuprofen 600 MG Tablet PO ONE (11:00)
[2018-09-07 12:31] VITALS: BP 129/78; PULSE 62; TEMP 98.7
--- NOTE | 2018-09-07 12:58 | P.CONCA ---
History of Present Illness Primary Care Provider: UNKNOWN Chief Complaint: Chest pain History of Present Illness: 53 year old with no significant CV history aside from HTN presenting to the ER with complaints of centralized chest pain and discomfort. Occasionally, she notes having associated dyspnea. No nausea, vomitting, or diaphoresis. She had a lexiscan which showed reversible inferior changes. Her pain did improve somewhat with the nitroglycerine. Currently chest pain free. Review of Systems All other systems reviewed negative except as stated in HPI PMFSH - History History Provided By: Patient - Medical History Medical History: Medical History (Last Reviewed 09/06/18 @ 07:18 by Bethany Lester MD) delivery delivered H/O: hysterectomy Hypertension - Tobacco History Second Hand Smoke Exposure: Yes Tobacco Use In Past 30 Days: Yes Smoking Status: Current every day smoker Tobacco Type: Cigarettes - Alcohol History How Often Do You Have a Drink Containing Alcohol: Monthly or less - Substance Use History Substance History: No History of Abuse - Travel History Recent Travel in the [place] Within the Last 8 Weeks: No Recent Travel Out of the Country Within the Last 8 Weeks: No - Immunization History Tetanus Immunization: >5 Years Medications and Allergies Active Medications: Active Medications Aspirin (Aspirin) 325 mg PO DAILY [facility] Last Admin: 09/07/18 10:21 Dose: 325 mg Escitalopram Oxalate (Lexapro) 15 mg PO DAILY [facility] Last Admin: 09/07/18 10:21 Dose: 15 mg Hydromorphone HCl (Dilaudid Pf Inj) 0.5 mg IV.PUSH Q4H PRN PRN Reason: PAIN 8-10 Last Admin: 09/06/18 20:49 Dose: 0.5 mg Levothyroxine Sodium (Synthroid) 88 mcg PO DAILY@0600 [facility] Last Admin: 09/07/18 10:22 Dose: 88 mcg Ondansetron HCl (Zofran Inj) 4 mg IV.PUSH Q6H PRN PRN Reason: NAUSEA OR VOMITING Last Admin: 09/06/18 21:01 Dose: 4 mg Pantoprazole Sodium (Protonix) 40 mg PO DAILY [facility] Last Admin: 09/07/18 10:21 Dose: 40 mg Sodium Chloride (Ns Flush) 2 ml IV.FLUSH UNSCH PRN PRN Reason: FLUSH AFTER USING IV ACCESS Sodium Chloride (Ns Flush) 2 ml IV.FLUSH BID [facility] Last Admin: 09/07/18 10:22 Dose: 2 ml Sodium Chloride (Ns Flush) 2 ml IV.FLUSH PRN PRN PRN Reason: FLUSH AFTER USING IV ACCESS Allergies Allergy/AdvReac Type Severity Reaction Status Date / Time acetaminophen Allergy Severe SWELLING,HI Unverified 09/06/18 06:01 VES codeine Allergy Severe SWELLING,HI Unverified 09/06/18 06:01 VES penicillin G Allergy Severe SWELLING,HI Unverified 09/06/18 06:01 VES propoxyphene AdvReac Severe CHEST Unverified 09/06/18 06:01 PAIN,ABDOMINAL PAIN erythromycin base AdvReac Intermediate Nausea/Vomi Unverified 09/06/18 06:01 ting Home Medications Medication Instructions Recorded Confirmed Type escitalopram oxalate [Lexapro] 15 mg PO DAILY 09/06/18 09/06/18 History levothyroxine 88 mcg PO DAILY 09/06/18 09/06/18 History Exam Vital signs: Vital Signs 09/06/18 16:00 09/06/18 19:50 09/07/18 00:00 Temperature 97.7 F 98.6 F 98.6 F Pulse Rate 67 72 64 Respiratory Rate 16 17 17 Blood Pressure 123/68 138/81 119/71 Pulse Oximetry 97 97 96 09/07/18 04:00 09/07/18 07:45 09/07/18 08:00 Temperature 98.5 F 98.6 F Pulse Rate 67 73 Respiratory Rate 16 16 16 Blood Pressure 133/82 140/77 Pulse Oximetry 97 96 09/07/18 12:00 Temperature 98.7 F Pulse Rate 62 Respiratory Rate 16 Blood Pressure 129/78 Pulse Oximetry 96 Intake & Output 09/06/18 09/07/18 09/07/18 18:59 06:59 18:59 Intake Total 625 / 625 Balance 625 / 625 Weight 71.1 kg Intake: IV 625 / 625 NS Inj 1,000 ML @ 125 mls/hr IV 625 / 625 .CONT .Q8H [facility] Rx#:[id number] Other: # Voids 4 1 - Constitutional no acute distress - Routine HEENT Exam Head: Present: normocephalic Eye: Present: EOMI, PERRL ENT: Present: mucous membranes moist - Routine Neck Exam Present: supple. Absent: JVD - Routine Chest/Breast/Axilla Exam Chest wall: Absent: tenderness - Routine Respiratory Exam Present: CTA bilaterally - Routine Cardiovascular Exam Present: RRR, S1, S2 - Routine Abdominal Exam Present: soft, normoactive bowel sounds. Absent: tenderness - Routine Extremities Exam Absent: edema - Routine Skin Exam Present: intact - Routine Neurological Exam Present: alert, oriented X3, CN II-XII intact - Routine Psychiatric Exam Present: normal affect Results 09/06/18 07:00 09/06/18 07:00 Cardiac Enzymes 09/06/18 09/06/18 09/06/18 Range/Units 07:00 07:00 09:56 AST 19 (15-37) U/L Troponin I Less than 0.02 L Less than 0.02 L (0.02-0.05) ng/mL B-Natriuretic Peptide 30 (0-100) pg/mL 09/06/18 Range/Units 12:00 AST (15-37) U/L Troponin I Less than 0.02 L (0.02-0.05) ng/mL B-Natriuretic Peptide (0-100) pg/mL Coagulation 09/06/18 09/06/18 Range/Units 07:00 07:00 PT 9.2 L (9.8-11.6) sec B-Natriuretic Peptide 30 (0-100) pg/mL CBC 09/06/18 Range/Units 07:00 WBC 9.0 (4.0-11.0) th/mm3 RBC 4.19 (4.00-5.30) mil/mm3 Hgb 14.1 (11.6-15.3) gm/dL Hct 40.5 (35.0-46.0) % Plt Count 317 (150-450) th/mm3 Neut # (Auto) 5.2 (1.8-7.7) th/mm3 Lymph # (Auto) 2.4 (1.0-4.8) th/mm3 [place] # (Auto) 1.1 H (0.0-0.9) th/mm3 Eos # (Auto) 0.2 (0.0-0.4) th/mm3 Baso # (Auto) 0.1 (0.0-0.2) th/mm3 Comprehensive Metabolic Panel 09/06/18 Range/Units 07:00 Sodium 140 (136-145) meq/L Potassium 4.1 (3.5-5.1) meq/L Chloride 106 (98-107) meq/L Carbon Dioxide 26.5 (21.0-32.0) meq/L BUN 13 (7-18) mg/dL Creatinine 0.75 (0.50-1.00) mg/dL Calcium 8.2 L (8.5-10.1) mg/dL AST 19 (15-37) U/L ALT 43 (10-53) U/L Alkaline Phosphatase 108 (45-117) U/L Total Protein 7.1 (6.4-8.2) g/dL Albumin 3.4 (3.4-5.0) g/dL Intake and Output 09/06/18 09/07/18 09/07/18 22:59 06:59 14:59 Intake Total 625 / 625 Balance 625 / 625 Intake: IV 625 / 625 NS Inj 1,000 ML @ 125 mls/hr IV 625 / 625 .CONT .Q8H [facility] Rx#:[id number] Other: # Voids 4 1 Weight 71.1 kg - Imaging and Cardiology Imaging: Impressions Gallbladder Ultrasound 09/06/18 00:00 CONCLUSION: 1. The gallbladder is distended with few nonmobile gallstones. No definite gallbladder wall thickening or evidence of acute cholecystitis Chest X-Ray 09/06/18 06:45 CONCLUSION: Hazy opacity at the left base could be related to technique and overlying soft tissue structures but may represent pleural effusion with associated volume loss and/or consolidation. Good inspiratory formal PA and lateral views of the chest may help differentiate, if needed. Thoracic Aorta CT 09/06/18 06:45 CONCLUSION: 1. No acute abnormality is identified to explain the symptoms. No aneurysm or dissection is present. There is mild atherosclerotic disease of the infrarenal aorta. 2. Cholelithiasis. 3. The right breast implant demonstrates changes suggesting rupture. This could be confirmed with elective outpatient breast MRI, if needed. Myocardial Perfusion Scan Nuc Med 09/07/18 10:50 CONCLUSION: 1. Stress-induced ischemia inferior wall with mild hypokinesis. Assessment and Plan - Plan * atypical chest pain- trop neg x 3. The nuclear scan may represent a false positive. Currently symptom free not on antianginals. Will d/c with NTG and po BB
[2018-09-07] MEDS ORDERED: Metoprolol Tartrate 25 MG Tablet PO ONE (13:00)
--- NOTE | 2018-09-08 17:24 | TR ---
Date Performed: 09/07/2018 Time Performed: 09:04:45 DOCTOR: Rowena Mathis DRUG LIST: CLINICAL HISTORY: REASON FOR TEST: REASON FOR ENDING: OBSERVATION: CONCLUSION: Lexiscan stress test was performed under standard four minute protocol. Radionuclid e was injected one minute prior to ending the test. No electrocardiographic abormalities were present to suggest ischemia. Nuclear imaging and interpretation are pending. COMMENTS: Lexiscan stress test was performed under standard four minute protocol. Radionuclide was injected one minute prior to ending the test. No electrocardiographic abormalities were present t o suggest ischemia. Nuclear imaging and interpretation are pending.
--- NOTE | 2018-09-08 17:25 | ECG ---
Date Performed: 09/06/2018 Time Performed: 12:15:38 PTAGE: 53 years EKG: Sinus rhythm NORMAL ECG Since PREVIOUS TRACING , no significant change noted DOCTOR: Rowena Mathis Interpretating Date/Time 09/08/2018 17:23:33
--- NOTE | 2018-09-08 17:26 | ECG ---
Date Performed: 09/06/2018 Time Performed: 20:27:22 PTAGE: 53 years EKG: Sinus rhythm NORMAL ECG Since PREVIOUS TRACING , no significant change noted DOCTOR: Rowena Mathis Interpretating Date/Time 09/08/2018 17:24:10
== END 2018-09-07 14:15 | disposition home or self-care (01) ==
LOC: NEPE 05:52 → NEDA 05:52 → NEPFCDU 11:49